=== PATIENT | female | born 1945 | race Caucasian/White ===

== ENCOUNTER 2016-12-17 10:01 | Emergency (ER) | payer MEDICARE, OTHER ==
--- NOTE | 2016-12-17 10:34 | ER Document Report ---
ED Cardiac - General Stated Complaint: CHEST PAINS Time Seen by Provider: 12/17/16 10:09 Information source: Patient Notes: Patient is a 71-year-old female with past medical history of a pacemaker placed this past March as well as high blood pressure. Patient states she had a pacemaker placed to the left chest in 2014 with subsequent infection. She has had no difficulty with this new pacemaker. Around 4 AM the patient awoke with some pain to her right lateral upper back. She denies any chest pain. She denies any nausea, vomiting, diaphoresis, calf pain, leg swelling, recent trips or travel. She denies any cough, congestion, or fever. Patient and states that the patient has a history of back pain to the similar region and wears lidocaine patches at home. believes that the patient has been taking on too many chores and responsibilities lately including mowing the lawn. TRAVEL OUTSIDE OF THE [place] IN LAST 30 DAYS: No - HPI Patient complains to provider of: Other - See above Was the onset of pain: Gradual Is the pain a: Chronic problem Chest pain location: Back Quality of pain: Other - See above Severity now: Mild Severity at worst: Moderate Pain level currently: Denies Cardiac risk factors: Hypertension Positive cardiac history: Yes Associated symptoms: Other - See above Exacerbated by: Other - Worse with movement Relieved by: Rest Similar symptoms previously: Yes Recently seen / treated by doctor: No - Related Data Allergies/Adverse Reactions: codeine [Codeine] Allergy (Verified 06/10/13 09:59) Tachycardia hydrocodone [Hydrocodone] Allergy (Verified 06/10/13 09:59) Tachycardia valdecoxib [From Bextra] Allergy (Verified 06/10/13 09:59) Hives Past Medical History - General Information source: Patient - Social History Smoking Status: Unknown if Ever Smoked Cigarette use (# per day): No Chew tobacco use (# tins/day): No Smoking Education Provided: No Frequency of alcohol use: None Drug Abuse: None Family History: Reviewed & Not Pertinent - Past Medical History Cardiac Medical History: Reports: Hx Hypertension - medicated Denies: Hx Heart Attack Pulmonary Medical History: Denies: Hx Asthma Neurological Medical History: Denies: Hx Cerebrovascular Accident, Hx Seizures GI Medical History: Denies: Hx Hepatitis, Hx Hiatal Hernia, Hx Ulcer Infectious Medical History: Denies: Hx Hepatitis Past Surgical History: Reports: Hx Hysterectomy. Denies: Hx Mastectomy, Hx Open Heart Surgery, Hx Pacemaker Review of Systems - Review of Systems Constitutional: denies: Fever EENT: denies: Eye discharge, Nose discharge Cardiovascular: denies: Chest pain, Palpitations Respiratory: denies: Hemoptysis, Short of breath, Sputum Gastrointestinal: denies: Vomiting Genitourinary: denies: Dysuria Musculoskeletal: denies: Leg swelling Skin: Other - no hives. denies: Rash Neurological/Psychological: Other - no slurred speech -: Yes All other systems reviewed and negative Physical Exam - Vital signs Vitals: Resp 15 12/17/16 10:13 Notes: Reviewed vital signs and nursing note as charted by RN. CONSTITUTIONAL: Alert and oriented and responds appropriately to questions. Well -appearing; well-nourished HEAD: Normocephalic; atraumatic CARD: Regular rate and rhythm; no murmurs, no clicks, no rubs, no gallops; symmetric distal pulses RESP: Normal chest excursion without splinting or tachypnea; breath sounds clear and equal bilaterally; pacemaker appears in place with no surrounding erythema or induration; No wheezes, no rhonchi, no rales ABD/GI: Normal bowel sounds; non-distended; soft, non-tender BACK: The back appears normal; patient has 3 lidocaine patches across her upper back. I remove the lidocaine patches and do not detect any swelling or erythema. No midline tenderness. Patient has point tenderness to the right paraspinal musculature region just left of the scapula border. Patient states that that is the pain that she is feeling EXT: Normal ROM in all joints; non-tender to palpation; no cyanosis, no effusions, no edema SKIN: No acute lesions noted NEURO: Moves all extremities equally; Motor and sensory function intact PSYCH: The patient's mood and manner are appropriate. Grooming and personal hygiene are appropriate. Course - Re-evaluation Re-evalutation: 12/17/16 10:34 Given the above history and physical examination, I do believe that this is most likely musculoskeletal in nature. Given the patient's age, symptomatology , and history I will obtain 2 sets of cardiac enzymes by 3 hours as well as provide an x-ray of the chest. I do currently believe pulmonary embolism and aortic dissection to be extremely unlikely. Patient has already taken aspirin prior to arrival. EKG shows a heart of 64, normal sinus rhythm, minimal left axis deviation, flattening T waves in leads aVL, V2 through V6. No obvious ST elevation or depression. 12/17/16 12:29 Initial troponin as recorded. Repeat troponin at 2:30 PM. 12/17/16 12:31 Chest x-ray shows normal heart, normal mediastinum, no fractures, normal lung turner, no pneumothorax. 12/17/16 15:40 Second troponin is being drawn at this time. Patient still denies any chest pain. Back pain is improved. 12/17/16 16:27 Repeat troponin as recorded. Patient's pain is improved. Still point tenderness to that same location. Still denying any chest pain or shortness of breath. Vital signs are stable. Given the above history and physical examination, with repeat troponins 2, I believe it is reasonable to discharge the patient home at this time and strict return precautions and follow-up with her primary care physician. - Vital Signs Vital signs: Temp Pulse Resp BP Pulse Ox 18 137/78 H 98 12/17/16 13:01 12/17/16 13:01 12/17/16 13:01 - Laboratory Result Diagrams: 12/17/16 11:30 12/17/16 11:30 Laboratory results interpreted by me: 12/17/16 11:30 Carbon Dioxide 31 H Discharge - Discharge Clinical Impression: Upper back pain on right side Condition: Good Disposition: HOME, SELF-CARE Additional Instructions: Come back immediately for any increased pain, change in location or quality of pain, calf pain or leg swelling, coughing or fever, chest pain, or any other acute problems. Please make sure that you follow-up with the primary care physician as we have discussed. Referrals: ALVARO CR MD [Primary Care Provider] - Follow up as needed
--- NOTE | 2016-12-17 10:41 | EKG REPORT ---
SEVERITY:- BORDERLINE ECG - SINUS RHYTHM LEFT AXIS DEVIATION BORDERLINE T ABNORMALITIES, DIFFUSE LEADS : Confirmed by: Lashell Gilbert MD 17-Dec-2016 10:40:40
--- NOTE | 2016-12-17 11:26 | RADIOLOGY REPORT (SQ) ---
EXAM DESCRIPTION: CHEST PA/LAT COMPLETED DATE/TIME: 12/17/2016 11:12 am REASON FOR STUDY: 6 COMPARISON: March 2008 EXAM PARAMETERS: NUMBER OF VIEWS: two views TECHNIQUE: Digital Frontal and Lateral radiographic views of the chest acquired. RADIATION DOSE: NA LIMITATIONS: none FINDINGS: LUNGS AND PLEURA: No opacities, masses or pneumothorax. No pleural effusion. MEDIASTINUM AND HILAR STRUCTURES: No masses or contour abnormalities. HEART AND VASCULAR STRUCTURES: Heart normal size. No evidence for failure. BONES: No acute findings. HARDWARE: Pool chamber transvenous pacemaker is identified in position. Orthopedic hardware is again identified in the lower cervical spine. OTHER: No other significant finding. IMPRESSION: NO SIGNIFICANT RADIOGRAPHIC FINDING IN THE CHEST. TECHNICAL DOCUMENTATION: JOB ID: [id number] [employer]- All Rights Reserved
[2016-12-17 11:45] LABS: ABSOLUTE BASOPHILS # (AUTO) 0.1 10^3/uL (0.0-0.2); ABSOLUTE EOSINOPHILS # (AUTO) 0.1 10^3/uL (0.0-0.6); ABSOLUTE LYMPHOCYTES (AUTO) 1.7 10^3/uL (0.5-4.7); ABSOLUTE MONOCYTES (AUTO) 0.9 10^3/uL (0.1-1.4); BASOPHILS % (AUTO) 0.7 % (0-2); EOSINOPHILS % (AUTO) 1.2 % (0-6); HEMATOCRIT 36.6 % (36.0-47.0); HEMOGLOBIN 12.6 g/dL (12.0-15.5); HGB HCT DIFFERENCE 1.2; LYMPHOCYTES % (AUTO) 17.2 % (13-45); MEAN CORPUSCULAR HEMOGLOBIN 30.7 pg (27.0-33.4); MEAN CORPUSCULAR HGB CONC 34.5 g/dL (32.0-36.0); MEAN CORPUSCULAR VOLUME 89 fl (80-97); MONOCYTES % (AUTO) 9.4 % (3-13); RED BLOOD COUNT 4.12 10^6/uL (3.72-5.28); RED CELL DISTRIBUTION WIDTH 12.9 % (11.5-14.0); SEGMENTED NEUTROPHILS % (AUTO) 71.5 % (42-78); WHITE BLOOD COUNT 9.7 10^3/uL (4.0-10.5)
[2016-12-17 12:03] LABS: ANION GAP 8 (5-19); BLOOD UREA NITROGEN 17 mg/dL (7-20); CALCIUM 9.7 mg/dL (8.4-10.2); CARBON DIOXIDE 31 mmol/L (22-30); CHLORIDE 103 mmol/L (98-107); CREATININE RESULT 0.65 mg/dL (0.52-1.25); GLUCOSE 93 mg/dL (75-110); POTASSIUM 3.9 mmol/L (3.6-5.0); SODIUM 142.4 mmol/L (137-145)
[2016-12-17] MEDS ORDERED: OXYCODONE-ACETAMINOPHEN 5-325 MG TABLET PO ONE (12:30)
[2016-12-17] MEDS ORDERED: ONDANSETRON 4 MG TAB.RAPDIS PO ONE (14:13)
[2016-12-17 16:34] VITALS: BP 102/75
== END 2016-12-17 16:51 | disposition home or self-care (01) ==
LOC: ER 10:01
DX: M54.6 Pain in thoracic spine (principal); R07.9 Chest pain, unspecified; I10 Essential (primary) hypertension
CPT/HCPCS: 93005; 99284; 36415; 85025; 80048; 84484; 71020; 93010; A9270 ×2; S0119

== ENCOUNTER 2017-08-20 12:30 | Emergency (ER) | payer MEDICARE, OTHER ==
--- NOTE | 2017-08-20 13:29 | ER Document Report ---
ED Medical Screen (RME) - General Chief Complaint: Other Stated Complaint: RIGHT LEG BLEEDING Time Seen by Provider: 08/20/17 13:21 TRAVEL OUTSIDE OF THE [place] IN LAST 30 DAYS: No - Related Data Allergies/Adverse Reactions: codeine [Codeine] Allergy (Verified 06/10/13 09:59) Tachycardia hydrocodone [Hydrocodone] Allergy (Verified 06/10/13 09:59) Tachycardia valdecoxib [From Bextra] Allergy (Verified 06/10/13 09:59) Hives Past Medical History - Social History Chew tobacco use (# tins/day): No Drug Abuse: None - Past Medical History Cardiac Medical History: Reports: Hx Hypertension - medicated Denies: Hx Heart Attack Pulmonary Medical History: Denies: Hx Asthma Neurological Medical History: Denies: Hx Cerebrovascular Accident, Hx Seizures Renal/ Medical History: Denies: Hx Peritoneal Dialysis GI Medical History: Denies: Hx Hepatitis, Hx Hiatal Hernia, Hx Ulcer Infectious Medical History: Denies: Hx Hepatitis Past Surgical History: Reports: Hx Hysterectomy. Denies: Hx Mastectomy, Hx Open Heart Surgery, Hx Pacemaker Physical Exam - Vital signs Vitals: Temp Pulse Resp BP Pulse Ox 98.5 F 74 16 143/66 H 98 08/20/17 12:35 08/20/17 12:35 08/20/17 12:35 08/20/17 12:35 08/20/17 12:35 Course - Vital Signs Vital signs: Temp Pulse Resp BP Pulse Ox 98.5 F 74 16 143/66 H 98 08/20/17 12:35 08/20/17 12:35 08/20/17 13:16 08/20/17 12:35 08/20/17 12:35 Doctor's Discharge - Discharge Referrals: ALVARO CR MD [Primary Care Provider] - Follow up as needed
--- NOTE | 2017-08-20 13:31 | ER Document Report ---
ED General - General Chief Complaint: Other Stated Complaint: RIGHT LEG BLEEDING Time Seen by Provider: 08/20/17 13:21 Mode of Arrival: Ambulatory Information source: Patient Notes: 71-year-old female presents with bleeding varicose vein that started yesterday. Patient notes it is on the right calf denies any other complaints patient is not on any blood thinners TRAVEL OUTSIDE OF THE [place] IN LAST 30 DAYS: No - HPI Onset: Just prior to arrival Onset/Duration: Sudden Quality of pain: No pain Severity: Mild Pain Level: Denies Associated symptoms: Other Exacerbated by: Denies Relieved by: Denies Similar symptoms previously: No Recently seen / treated by doctor: No - Related Data Allergies/Adverse Reactions: codeine [Codeine] Allergy (Verified 06/10/13 09:59) Tachycardia hydrocodone [Hydrocodone] Allergy (Verified 06/10/13 09:59) Tachycardia valdecoxib [From Bextra] Allergy (Verified 06/10/13 09:59) Hives Past Medical History - Social History Smoking Status: Never Smoker Cigarette use (# per day): No Chew tobacco use (# tins/day): No Smoking Education Provided: No Drug Abuse: None Family History: Reviewed & Not Pertinent Patient has suicidal ideation: No Patient has homicidal ideation: No - Past Medical History Cardiac Medical History: Reports: Hx Hypertension - medicated Denies: Hx Heart Attack Pulmonary Medical History: Denies: Hx Asthma Neurological Medical History: Denies: Hx Cerebrovascular Accident, Hx Seizures Renal/ Medical History: Denies: Hx Peritoneal Dialysis GI Medical History: Denies: Hx Hepatitis, Hx Hiatal Hernia, Hx Ulcer Infectious Medical History: Denies: Hx Hepatitis Past Surgical History: Reports: Hx Hysterectomy. Denies: Hx Mastectomy, Hx Open Heart Surgery, Hx Pacemaker Review of Systems - Review of Systems Notes: REVIEW OF SYSTEMS: CONSTITUTIONAL : Denies fever, chills, or sweats. Denies recent illness. EENT: Denies eye, ear, throat, or mouth pain or symptoms. Denies nasal or sinus congestion or discharge. Denies throat, tongue, or mouth swelling or difficulty swallowing. CARDIOVASCULAR: Denies chest pain. Denies palpitations or racing or irregular heart beat. Denies ankle edema. RESPIRATORY: Denies cough, cold, or chest congestion. Denies shortness of breath, difficulty breathing, or wheezing. GASTROINTESTINAL: Denies abdominal pain or distention. Denies nausea, vomiting , or diarrhea. Denies blood in vomitus, stools, or per rectum. Denies black, tarry stools. Denies constipation. GENITOURINARY: Denies difficulty urinating, painful urination, burning, frequency, blood in urine, or discharge. FEMALE GENITOURINARY: Denies vaginal bleeding, heavy or abnormal periods, irregular periods. Denies vaginal discharge or odor. MUSCULOSKELETAL: Denies back or neck pain or stiffness. Denies joint pain or swelling. SKIN: Denies rash, lesions or sores. HEMATOLOGIC : Admits to play mild LYMPHATIC: Denies swollen, enlarged glands. NEUROLOGICAL: Denies confusion or altered mental status. Denies passing out or loss of consciousness. Denies dizziness or lightheadedness. Denies headache. Denies weakness or paralysis or loss of use of either side. Denies problems with gait or speech. Denies sensory loss, numbness, or tingling. Denies seizures. PSYCHIATRIC: Denies anxiety or stress. Denies depression, suicidal ideation, or homicidal ideation. ALL OTHER SYSTEMS REVIEWED AND NEGATIVE. PHYSICAL EXAMINATION: GENERAL: Well-appearing, well-nourished and in no acute distress. HEAD: Atraumatic, normocephalic. EYES: Pupils equal round and reactive to light, extraocular movements intact, conjunctiva are normal. ENT: Nares patent, oropharynx clear without exudates. Moist mucous membranes. NECK: Normal range of motion, supple without lymphadenopathy LUNGS: Breath sounds clear to auscultation bilaterally and equal. No wheezes rales or rhonchi. HEART: Regular rate and rhythm without murmurs ABDOMEN: Soft, nontender, nondistended abdomen. No guarding, no rebound. No masses appreciated. Female : deferred Musculoskeletal: Normal range of motion, no pitting or edema. No cyanosis. NEUROLOGICAL: Cranial nerves grossly intact. Normal speech, normal gait. Normal sensory, motor exams PSYCH: Normal mood, normal affect. SKIN: Small opening of the right calf noted measuring 2 mm Dictation was performed using [employer] recognition software Physical Exam - Vital signs Vitals: Temp Pulse Resp BP Pulse Ox 98.5 F 74 16 143/66 H 98 08/20/17 12:35 08/20/17 12:35 08/20/17 12:35 08/20/17 12:35 08/20/17 12:35 Course - Re-evaluation Re-evalutation: 08/20/17 13:43 no bleeding is noted , will dermabon the wound, place quick clot and follow up with plastic surgeon tomorrow - Vital Signs Vital signs: Temp Pulse Resp BP Pulse Ox 98.5 F 74 16 143/66 H 98 08/20/17 12:35 08/20/17 12:35 08/20/17 13:16 08/20/17 12:35 08/20/17 12:35 Procedures - Laceration/Wound Repair Right Leg Time completed: 13:00 Wound length (cm): 0.2 Wound's Depth, Shape: Superficial Laceration pre-procedure: Sterile PPE donned Wound explored: Clean, No foreign body removed Wound Debrided: Minimal Wound Repaired With: Dermabond Post-procedure wound care: Sterile dressing applied Post-procedure NV exam normal: Yes Complications: No Discharge - Discharge Clinical Impression: Bleeding from varicose vein Condition: Stable Disposition: HOME, SELF-CARE Instructions: Varicose Veins ([facility]) Referrals: ALVARO CR MD [Primary Care Provider] - Follow up as needed KALLIE FRANCO MD [ACTIVE STAFF] - Follow up tomorrow
[2017-08-20 13:58] VITALS: BP 148/77
== END 2017-08-20 13:58 | disposition home or self-care (01) ==
LOC: ER 12:30
PROC: 0HQKXZZ Repair Right Lower Leg Skin, External Approach (ICD-10-PCS; principal; 2017-08-20)
DX: I83.91 Asymptomatic varicose veins of right lower extremity (principal); I10 Essential (primary) hypertension; Z79.899 Other long term (current) drug therapy
CPT/HCPCS: 99283; 12001; G0168

== ENCOUNTER → 2017-11-23 | Outpatient (CLI) | payer MEDICARE, OTHER ==
--- NOTE | 2017-11-24 10:15 | RADIOLOGY REPORT (SQ) ---
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 RADIONUCLIDE AND DOSE: 316 microcuries [id number] The route of agent administration: Oral ADDITIONAL DRUGS AND DOSES: None. TECHNIQUE: Iodine uptake was measured at 4 and 24 hours. Images of the neck were acquired. LIMITATIONS: None. FINDINGS: 4 HOUR UPTAKE RADIO-IODINE: 15.67%. Normal Range of 5-20% [facility] Normal Range of 5-15% [facility] Normal Range of 5-15% [facility] 24 HOUR UPTAKE RADIO-IODINE: 29.93%. Normal Range of 7-35% [facility] Normal Range of 8-35% [facility] Normal Range of 15-30% [facility] SCAN: Homogeneous uptake of the radionuclide throughout both lobes of the gland and isthmus without a reas of increased or decreased activity. Normal size. OTHER: No other significant finding. IMPRESSION: NORMAL RADIONUCLIDE SCAN OF THYROID GLAND. THE 4 HOUR IODINE UPTAKE IS SLIGHTLY GREATER THAN NORMAL AND THE 24 HOUR UPTAKE IS UPPER LIMITS OF NO RMAL. TECHNICAL DOCUMENTATION: JOB ID: [id number] [employer]- All Rights Reserved Reading location - IP/workstation name: [email or web address]
== END ==
LOC: RAD 08:58
PROVIDERS: ATTEND Internal Medicine
DX: E05.90 Thyrotoxicosis, unspecified without thyrotoxic crisis or storm (principal)
CPT/HCPCS: 78014; A9516

== ENCOUNTER 2018-09-03 17:34 | Observation (INO) | payer MEDICARE, OTHER ==
[2018-09-03] MEDS ORDERED: ACETAMINOPHEN 650 MG SUPP.RECT PR ONE (19:08)
[2018-09-03] MEDS ORDERED: ACETAMINOPHEN 325 MG TABLET PO ONE (19:15)
--- NOTE | 2018-09-03 19:42 | RADIOLOGY REPORT (SQ) ---
EXAM DESCRIPTION: CT HEAD WITHOUT COMPLETED DATE/TIME: 09/03/2018 7:30 pm REASON FOR STUDY: Head injury with headache COMPARISON: None. TECHNIQUE: Axial images acquired through the brain without intravenous contrast. Images reviewed wit h bone, brain and subdural windows. Images stored on PACS. All CT scanners at this facility use dose modulation, iterative reconstruction, and/or weight based d osing when appropriate to reduce radiation dose to as low as reasonably achievable (ALARA). [facility]: Dose Right [facility]: CareDose [facility]: Dose Right [facility]: Teradose 4D [facility]: Smart Taptu RADIATION DOSE: CT Rad equipment meets quality standard of care and radiation dose reduction techniq ues were employed. CTDIvol: 53.2 mGy. DLP: 1017 mGy-cm.. LIMITATIONS: None. FINDINGS: VENTRICLES: Normal size and contour. CEREBRUM: No masses. No hemorrhage. No midline shift. Age appropriate white matter. No evidence for a cute infarction. CEREBELLUM: No masses. No hemorrhage. No alteration of density. No evidence for acute infarction. EXTRA-AXIAL SPACES: No fluid collections. ORBITS AND GLOBE: No intra- or extraconal masses. Normal contour of globe without masses. CALVARIUM: No fracture. PARANASAL SINUSES: No fluid or mucosal thickening. SOFT TISSUES: No mass or hematoma. OTHER: No other significant finding. IMPRESSION: NO ACUTE INTRACRANIAL FINDINGS. EVIDENCE OF ACUTE STROKE: NO. TECHNICAL DOCUMENTATION: JOB ID: [id number] [place]-72 Quality ID # [id number]: Final reports with documentation of one or more dose reduction techniques (e.g., Au tomated exposure control, adjustment of the mA and/or kV according to patient size, use of iterative reconstruction technique) 2010 [employer]- All Rights Reserved Reading location - IP/workstation name: [email or web address]
--- NOTE | 2018-09-03 19:51 | RADIOLOGY REPORT (SQ) ---
EXAM DESCRIPTION: CHEST 2 VIEWS COMPLETED DATE/TIME: 09/03/2018 7:40 pm REASON FOR STUDY: Fall with chest wall pain, back pain COMPARISON: 12/17/2016 TECHNIQUE: Frontal and lateral radiographic views of the chest acquired. NUMBER OF VIEWS: Two view. LIMITATIONS: None. FINDINGS: LUNGS AND PLEURA: No pneumothorax. No consolidation or pleural effusion. MEDIASTINUM AND HILAR STRUCTURES: Stable. HEART AND VASCULAR STRUCTURES: Stable. BONES: Osteopenia. No fracture identified. HARDWARE: Cardiac pacer. OTHER: No other significant finding. IMPRESSION: NO ACUTE FINDINGS. No fracture identified. TECHNICAL DOCUMENTATION: JOB ID: [id number] [place]-72 2010 [employer]- All Rights Reserved Reading location - IP/workstation name: [email or web address]
--- NOTE | 2018-09-03 19:53 | RADIOLOGY REPORT (SQ) ---
EXAM DESCRIPTION: T SPINE AP/LAT COMPLETED DATE/TIME: 09/03/2018 7:40 pm REASON FOR STUDY: fall with midback pain COMPARISON: None. NUMBER OF VIEWS: Two views. TECHNIQUE: AP and lateral radiographic images acquired of the thoracic spine. LIMITATIONS: Motion artifact. FINDINGS: MINERALIZATION: Osteopenia. ALIGNMENT: Mild -moderate scoliosis. VERTEBRAE: No fracture identified. DISCS: Multilevel disc space narrowing with osteophytes. HARDWARE: None in the spine. MEDIASTINUM AND SOFT TISSUES: Normal heart size and aortic contour. No soft tissue abnormality. VISUALIZED LUNG CURRIE: Clear. OTHER: No other significant finding. IMPRESSION: No fracture identified. COMMENT: Motion artifact and osteopenia limit evaluation. If there is high suspicion consider cross -sectional imaging. TECHNICAL DOCUMENTATION: JOB ID: [id number] [place]-72 2010 [employer]- All Rights Reserved Reading location - IP/workstation name: [email or web address]
[2018-09-03 19:55] LABS: APPEARANCE,URINE CLEAR; BILIRUBIN,URINE NEGATIVE (NEGATIVE); COLOR,URINE STRAW; GLUCOSE, URINE NEGATIVE (NEGATIVE); KETONES,URINE 25 mg/dL (NEGATIVE); LEUKOCYTE ESTERASE,URINE SMALL (NEGATIVE); NITRITE,URINE NEGATIVE (NEGATIVE); PROTEIN,URINE NEGATIVE (NEGATIVE)
[2018-09-03 19:58] LABS: URINE SPECIFIC GRAVITY 1.013
[2018-09-03 20:10] LABS: ABSOLUTE LYMPHOCYTES (AUTO) 1.5 10^3/uL (0.5-4.7); ABSOLUTE MONOCYTES (AUTO) 0.6 10^3/uL (0.1-1.4); ABSOLUTE NEUT (AUTO) 1.5 10^3/uL (1.7-8.2); BASOPHILS % (AUTO) 0.9 % (0-2); EOSINOPHILS % (AUTO) 1.2 % (0-6); HEMATOCRIT 31.7 % (36.0-47.0); HEMOGLOBIN 10.3 g/dL (12.0-15.5); LYMPHOCYTES % (AUTO) 41.6 % (13-45); MEAN CORPUSCULAR HEMOGLOBIN 25.8 pg (27.0-33.4); MEAN CORPUSCULAR HGB CONC 32.5 g/dL (32.0-36.0); MEAN CORPUSCULAR VOLUME 80 fl (80-97); MONOCYTES % (AUTO) 16.7 % (3-13); PLATELET COUNT 247 10^3/uL (150-450); RED BLOOD COUNT 3.98 10^6/uL (3.72-5.28); RED CELL DISTRIBUTION WIDTH 16.8 % (11.5-14.0); SEGMENTED NEUTROPHILS % (AUTO) 39.6 % (42-78); TOTAL CELLS COUNTED % (AUTO) 100 %; WHITE BLOOD COUNT 3.7 10^3/uL (4.0-10.5)
[2018-09-03 20:27] LABS: ALANINE AMINOTRANSFERASE 38 U/L (9-52); ALBUMIN 3.6 g/dL (3.5-5.0); ALKALINE PHOSPHATASE 113 U/L (38-126); ANION GAP 7 (5-19); ASPARTATE AMINO TRANSFERASE 45 U/L (14-36); BILIRUBIN,DIRECT 0.5 mg/dL (0.0-0.4); BILIRUBIN,TOTAL 0.6 mg/dL (0.2-1.3); BLOOD UREA NITROGEN 13 mg/dL (7-20); CALCIUM 9.9 mg/dL (8.4-10.2); CARBON DIOXIDE 30 mmol/L (22-30); CHLORIDE 103 mmol/L (98-107); GLUCOSE 89 mg/dL (75-110); POTASSIUM 3.8 mmol/L (3.6-5.0); SODIUM 140.4 mmol/L (137-145); TOTAL PROTEIN 6.5 g/dL (6.3-8.2)
--- NOTE | 2018-09-03 21:52 | ER Document Report ---
ED General - General Chief Complaint: Fall Stated Complaint: FALL Time Seen by Provider: 09/03/18 18:47 Primary Care Provider: NILS BUNDY MD [Primary Care Provider] - Follow up as needed Mode of Arrival: Wheelchair Information source: Patient, Relative TRAVEL OUTSIDE OF THE [place] IN LAST 30 DAYS: No - HPI Notes: Patient is a 72-year-old female history of pacemaker placed 8 years ago and history of hypertension presents to the emergency department with report of 2 prior near syncopal versus syncopal events at home and she came in to see her regular practitioner earlier today who sent her for blood work. The patient was walking through the door of the laboratory when she had a sudden Sear syncopal event and fell forward on her right chest. Afterwards she reported pain to the right chest with a pleuritic component. The patient states she did not completely lose consciousness, but she was slightly disoriented thereafter. The patient reports no subjective dyspnea. She denies any nausea, vomiting. She reports no prior chest pain before the fall. The patient denies any constipation, diarrhea, dysuria, neck pain. She does report recent significant stress related to anxiety about her who has a pacemaker defibrillator and has been undergoing chemotherapy. Mild headache, not the worst of her life. Patient denies any recent medication changes. The patient takes sotalol 120 mg BID and losartan 100 mg daily and daily aspirin. - Related Data Allergies/Adverse Reactions: codeine [Codeine] Allergy (Verified 06/10/13 09:59) Tachycardia hydrocodone [Hydrocodone] Allergy (Verified 06/10/13 09:59) Tachycardia valdecoxib [From Bextra] Allergy (Verified 06/10/13 09:59) Hives Past Medical History - General Information source: Patient - Social History Smoking Status: Never Smoker Frequency of alcohol use: None Drug Abuse: None Lives with: Family Family History: Reviewed & Not Pertinent Patient has suicidal ideation: No Patient has homicidal ideation: No - Past Medical History Cardiac Medical History: Reports: Hx Hypertension - medicated Denies: Hx Heart Attack Pulmonary Medical History: Denies: Hx Asthma Neurological Medical History: Denies: Hx Cerebrovascular Accident, Hx Seizures Renal/ Medical History: Denies: Hx Peritoneal Dialysis GI Medical History: Denies: Hx Hepatitis, Hx Hiatal Hernia, Hx Ulcer Infectious Medical History: Denies: Hx Hepatitis Past Surgical History: Reports: Hx Hysterectomy. Denies: Hx Mastectomy, Hx Open Heart Surgery, Hx Pacemaker Review of Systems - Review of Systems -: Yes All other systems reviewed and negative - Patient denies any focal numbness or weakness. Physical Exam - Vital signs Vitals: Resp Pulse Ox 20 100 09/03/18 17:44 09/03/18 17:44 - Notes Notes: PHYSICAL EXAMINATION: GENERAL: Well-appearing, well-nourished and in no acute distress. HEAD: Atraumatic, normocephalic. EYES: Pupils equal round and reactive to light, extraocular movements intact, conjunctiva are normal. ENT: Nares patent, oropharynx clear without exudates. Moist mucous membranes. NECK: Normal range of motion, supple without lymphadenopathy. No carotid bruits. LUNGS: Breath sounds clear to auscultation bilaterally and equal. No wheezes rales or rhonchi. Anterior right lower chest wall pain on palpation. No crepitance or bony deformity. Patient's pacemaker site appears clear. HEART: Regular rate and rhythm with 1/6 ELAN over apex. ABDOMEN: Soft, nontender, nondistended abdomen. No guarding, no rebound. No masses appreciated. Female : deferred Musculoskeletal: Normal range of motion, no pitting or edema. No cyanosis. Negative Homans. No palpable cord. NEUROLOGICAL: Cranial nerves grossly intact. Normal speech, normal gait. Normal sensory, motor exams PSYCH: Normal mood, normal affect. SKIN: Warm, Dry, normal turgor, no rashes or lesions noted. Course - Re-evaluation Re-evalutation: 09/03/18 22:05 Patient was watched on the physical medicine teacher and showed no ectopy or other abnormality. Initial blood pressure was elevated but came down to 176/82. 09/04/18 01:56 Initial troponin was elevated at 0.57. A repeat troponin was drawn which was 0.54. Initial x-ray studies were negative for thoracic spine injury or pneumothorax or pulmonary contusion. There is no evidence for CHF. Patient still complained of her right lower chest wall pain on palpation. She has developed some nausea and was given Zofran. Repeat EKG is interpreted by me, performed at 00 16 on 09/04/2018 showed normal sinus rhythm heart rate of [address] abnormalities. No evidence for STEMI. No significant change from prior EKG reviewed. CT scan was negative for pneumothorax or congestive heart failure or pneumonia or rib fracture. Incidental note made of a 4 cm ascending aortic aneurysm. Old records requested from [facility] to assess for chronicity of the aortic aneurysm finding. Discussion was undertaken with the patient and her family and they were in agreement with admission for further evaluation and care. 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 Lindsey, call was made to [facility] and Dr. Ortiz accepted the patient in transfer, but there was a waiting list of 19 patients by his report. Blood pressure slightly elevated again. Patient given her morning dose of losartan and have written for the patient's sotalol and aspirin. Unlikely that the patient's elevated troponin with mild drop is related to the fall which occurred just prior to the lab work being initially drawn. 09/04/18 01:57 Discussion was undertaken with hospitalist Dr. Bates, who agreed to admit the pt to OBS status. CKMB was negative. 09/04/18 03:37 - Vital Signs Vital signs: Temp Pulse Resp BP Pulse Ox 98.2 F 76 20 179/76 H 96 09/03/18 17:45 09/03/18 17:45 09/03/18 21:04 09/03/18 20:27 09/03/18 21:23 - Laboratory Result Diagrams: 09/03/18 20:01 09/03/18 20:01 Laboratory results interpreted by me: 09/03/18 09/03/18 09/03/18 19:39 20:01 20:01 WBC 3.7 L Hgb 10.3 L Hct 31.7 L MCH 25.8 L RDW 16.8 H Seg Neutrophils % 39.6 L Monocytes % 16.7 H Absolute Neutrophils 1.5 L Direct Bilirubin 0.5 H AST 45 H Creatine Kinase Urine Ketones 25 H Urine Urobilinogen 2.0 H Ur Leukocyte Esterase SMALL H 09/04/18 01:41 WBC Hgb Hct MCH RDW Seg Neutrophils % Monocytes % Absolute Neutrophils Direct Bilirubin AST Creatine Kinase < 20 L Urine Ketones Urine Urobilinogen Ur Leukocyte Esterase - EKG Interpretation by Me EKG shows normal: Sinus rhythm Additional EKG results interpreted by me: 09/03/18 21:50 EKG at 19:55 as interpreted by me showed normal sinus rhythm heart rate of 71. There is no gross evidence for acute IL or ischemia noted. There is no significant changes compared to previous EKG reviewed from 09/03/2018. 09/04/18 01:58 Critical Care Note - Critical Care Note Total time excluding time spent on procedures (mins): 56 Discharge - Discharge Clinical Impression: Syncope and collapse, Elevated troponin I level Chest wall contusion Qualifiers: Encounter type: initial encounter Laterality: unspecified laterality Qualified Code(s): S20.219A - Contusion of unspecified front wall of thorax, initial encounter Condition: Stable Disposition: ADMITTED OBSERVATION Admitting Provider: Paulo (Hospitalist) Unit Admitted: IMCU Referrals: NILS BNUDY MD [Primary Care Provider] - Follow up as needed
--- NOTE | 2018-09-03 22:35 | RADIOLOGY REPORT (SQ) ---
EXAM DESCRIPTION: CT CHEST ANGIOGRAPHY WITHOUT THEN WITH IV CONTRAST COMPLETED DATE/TME: 09/03/2018 21:22 CLINICAL HISTORY: 72 years, Female, syncope with R pleuritic chest pain COMPARISON: None. TECHNIQUE: Axial CT images of the chest were obtained after the administration of IV contrast. MPR and MIP reconstructions were performed. DLP 322. Images stored on PACS. All CT scanners at this facility use dose modulation, iterative reconstruction, and/or weight based dosing when appropriate to reduce radiation dose to as low as reasonably achievable (ALARA). [facility]: Dose Right [facility]: CareDose [facility]: Dose Right [facility]: Teradose 4D [facility]: Grovac LIMITATIONS: None. FINDINGS: No pulmonary embolism is detected to the segmental branches. The thyroid gland is normal. The central airways are patent. The heart is normal in size. There are atherosclerotic calcifications of the coronary arteries. There are mild atherosclerotic calcifications of the thoracic aorta. The ascending aorta measures up to 4 cm in diameter. There is no evidence of a dissection. The descending thoracic aorta is normal in caliber. There is no pericardial effusion. No pathologically enlarged mediastinal lymph nodes. The lungs are clear. There is no pneumothorax or pleural effusion. There is no acute fracture or subluxation. Cholecystectomy clips are noted. IMPRESSION: No CT evidence of acute pulmonary embolism. Ascending aorta measuring up to 4 cm in diameter. Coronary artery disease. TECHNICAL DOCUMENTATION: Quality ID # 436: Final reports with documentation of one or more dose reduction techniques (e.g., Automated exposure control, adjustment of the mA and/or kV according to patient size, use of iterative reconstruction technique) copyright 2011 [employer]- All Rights Reserved
[2018-09-03] MEDS ORDERED: ONDANSETRON HCL INJ/PF 4 MG/2 ML SDV IV ONE (23:53)
[2018-09-04] MEDS ORDERED: ASPIRIN 81 MG TABLET, CHEWABLE PO SCH ×2 (03:10→10:00)
[2018-09-04] MEDS ORDERED: LOSARTAN POTASSIUM 50 MG TABLET PO SCH ×2 (03:10→10:00)
[2018-09-04] MEDS ORDERED: MAG HYDROX/AL HYDROX/SIMETH SUSP 30 ML UDCUP PO PRN (03:40)
--- NOTE | 2018-09-04 04:18 | PDOC H&P ---
History of Present Illness Admission Date/PCP: NILS BUNDY MD Patient complains of: Syncope History of Present Illness: STAS FLEMING is a 72 year old female with a past medical history of hypertension, cognitive decline and permanent pacemaker placed 8 years ago. Patient presents to the lab for work-up of unclear syncopal events over the past week however has another syncopal event upon arrival to the laboratory. Patient is assisted to the ground by a family member, denies loss of consciousness but complains of right sided chest wall pain. In the emergency room her physical exam is negative for trauma, skin tear, abrasion or ecchymosis. Work-up is concerning for a hypertensive urgency in the 200 systolic range, unremarkable EKG, non-ST elevation AK with a troponin of 0.5 with total CK below detected level. CTA chest is unremarkable. Patient is currently pain-free without complaints she is referred to the hospitalist for admission. Past Medical History Cardiac Medical History: Reports: Hypertension - medicated Denies: Myocardial Infarction Pulmonary Medical History: Denies: Asthma Neurological Medical History: Denies: Seizures GI Medical History: Denies: Hepatitis, Hiatal Hernia Hematology: Denies: Anemia, Sickle Cell Disease Past Surgical History Past Surgical History: Reports: Hysterectomy, Pacemaker Denies: Amputation, Mastectomy Social History Information Source: Patient Lives with: Family Smoking Status: Never Smoker Frequency of Alcohol Use: None Drugs: None - Advance Directive Resuscitation Status: Full Code Family History Family History: Hypertension Parental Family History Reviewed: Yes Children Family History Reviewed: Yes Sibling(s) Family History Reviewed.: Yes Medication/Allergy Home Medications: Ascorbate Calcium [Vitamin C] 500 mg PO DAILY PRN 06/10/13 Atorvastatin Calcium [Lipitor 40 mg Tablet] 40 mg PO QHS 06/10/13 Cholecalciferol (Vitamin D3) [Vitamin D] 400 unit PO DAILY 06/10/13 Cyanocobalamin (Vitamin B-12) [Vitamin B-12] 1,000 mcg PO DAILY 06/10/13 Loratadine [Claritin] 10 mg PO DAILY 06/10/13 Meloxicam [Mobic 15 mg Tablet] 15 mg PO DAILY 06/10/13 Metoprolol Succinate [Toprol Xl] 25 mg PO DAILY 06/10/13 Omeprazole 20 mg PO DAILY 06/10/13 Valsartan [Diovan 160 mg Tablet] 160 mg PO DAILY 06/10/13 Allergies/Adverse Reactions: codeine [Codeine] Allergy (Verified 06/10/13 09:59) Tachycardia hydrocodone [Hydrocodone] Allergy (Verified 06/10/13 09:59) Tachycardia valdecoxib [From Bextra] Allergy (Verified 06/10/13 09:59) Hives Review of Systems Constitutional: PRESENT: as per HPI, headache(s). ABSENT: chills, fatigue, fever(s), night sweats Eyes: ABSENT: visual disturbances Ears: ABSENT: hearing changes Cardiovascular: PRESENT: as per HPI, other - Syncopal episode. ABSENT: chest pain, dyspnea on exertion, edema, palpitations Respiratory: ABSENT: cough, hemoptysis Gastrointestinal: ABSENT: abdominal pain, constipation, diarrhea, hematemesis, hematochezia, nausea, vomiting Genitourinary: ABSENT: dysuria, hematuria Musculoskeletal: ABSENT: joint swelling Integumentary: ABSENT: rash, wounds Neurological: PRESENT: syncope. ABSENT: abnormal gait, abnormal speech, confusion, dizziness, focal weakness Psychiatric: ABSENT: anxiety, depression, homidical ideation, suicidal ideation Endocrine: ABSENT: cold intolerance, heat intolerance, polydipsia, polyuria Hematologic/Lymphatic: ABSENT: easy bleeding, easy bruising Physical Exam Vital Signs: Temp Pulse Resp BP Pulse Ox 98.2 F 76 20 179/76 H 96 09/03/18 17:45 09/03/18 17:45 09/03/18 21:04 09/03/18 20:27 09/03/18 21:23 Intake & Output 09/02/18 09/03/18 09/04/18 11:59 11:59 11:59 Weight 63.503 kg General appearance: PRESENT: no acute distress, cooperative, thin. ABSENT: mild distress Head exam: PRESENT: atraumatic, normocephalic Eye exam: PRESENT: conjunctiva pink, EOMI, PERRLA. ABSENT: scleral icterus Ear exam: PRESENT: normal external ear exam Mouth exam: PRESENT: moist, tongue midline Neck exam: ABSENT: carotid bruit, JVD, lymphadenopathy, thyromegaly Respiratory exam: PRESENT: clear to auscultation dale. ABSENT: rales, rhonchi, wheezes Cardiovascular exam: PRESENT: RRR. ABSENT: diastolic murmur, rubs, systolic murmur Pulses: PRESENT: normal dorsalis pedis pul Vascular exam: PRESENT: normal capillary refill GI/Abdominal exam: PRESENT: normal bowel sounds, soft. ABSENT: distended, guarding, mass, organolmegaly, rebound, tenderness Rectal exam: PRESENT: deferred Extremities exam: PRESENT: full ROM. ABSENT: calf tenderness, clubbing, pedal edema Neurological exam: PRESENT: alert, awake, oriented to person, oriented to place, oriented to time, oriented to situation, CN II-XII grossly intact. ABSENT: motor sensory deficit Psychiatric exam: PRESENT: anxious, normal mood. ABSENT: homicidal ideation, suicidal ideation Skin exam: PRESENT: dry, intact, warm. ABSENT: cyanosis, rash Results Laboratory Results: 09/03/18 20:01 09/03/18 20:01 09/03/18 09/03/18 09/03/18 19:39 20:01 20:01 WBC 3.7 L RBC 3.98 Hgb 10.3 L Hct 31.7 L MCV 80 MCH 25.8 L MCHC 32.5 RDW 16.8 H Plt Count 247 Seg Neutrophils % 39.6 L Lymphocytes % 41.6 Monocytes % 16.7 H Eosinophils % 1.2 Basophils % 0.9 Absolute Neutrophils 1.5 L Absolute Lymphocytes 1.5 Absolute Monocytes 0.6 Absolute Eosinophils 0.0 Absolute Basophils 0.0 Sodium 140.4 Potassium 3.8 Chloride 103 Carbon Dioxide 30 Anion Gap 7 BUN 13 Creatinine 0.54 Est GFR ( Amer) > 60 Est GFR (Non-Af Amer) > 60 Glucose 89 Calcium 9.9 Magnesium 1.8 Total Bilirubin 0.6 AST 45 H ALT 38 Alkaline Phosphatase 113 Total Protein 6.5 Albumin 3.6 Urine Color STRAW Urine Appearance CLEAR Urine pH 7.0 Ur Specific [place] 1.013 Urine Protein NEGATIVE Urine Glucose (UA) NEGATIVE Urine Ketones 25 H Urine Blood NEGATIVE Urine Nitrite NEGATIVE Ur Leukocyte Esterase SMALL H Urine WBC (Auto) 2 Urine RBC (Auto) 0 09/03/18 09/03/18 09/04/18 20:01 23:00 01:41 Creatine Kinase < 20 L CK-MB (CK-2) Troponin I 0.571 0.549 09/04/18 01:41 Creatine Kinase CK-MB (CK-2) 0.60 Troponin I Impressions: Chest X-Ray 09/03/18 19:10 IMPRESSION: NO ACUTE FINDINGS. No fracture identified. Head CT 09/03/18 19:10 IMPRESSION: NO ACUTE INTRACRANIAL FINDINGS. EVIDENCE OF ACUTE STROKE: NO. Thoracic Spine X-Ray 09/03/18 19:11 IMPRESSION: No fracture identified. Chest/Abdomen CTA 09/03/18 21:22 IMPRESSION: No CT evidence of acute pulmonary embolism. Ascending aorta measuring up to 4 cm in diameter. Coronary artery disease. TECHNICAL DOCUMENTATION: Quality ID # 436: Final reports with documentation of one or more dose reduction techniques (e.g., Automated exposure control, adjustment of the mA and/or kV according to patient size, use of iterative reconstruction technique) copyright 2011 [employer]- All Rights Reserved Assessment and Plan - Diagnosis (1) Syncope and collapse Is this a current diagnosis for this admission?: Yes Plan: Telemetry observation, CTA negative, orthostatic blood pressures, follow-up medication reconciliation (2) Chest wall contusion Qualifiers: Encounter type: initial encounter Laterality: unspecified laterality Qualified Code(s): S20.219A - Contusion of unspecified front wall of thorax, initial encounter Is this a current diagnosis for this admission?: Yes Plan: Symptomatic management (3) Elevated troponin I level Is this a current diagnosis for this admission?: Yes Plan: Initial troponin obtained within 30 minutes of syncopal event found elevated at 0.5 concerning for possible subacute AK. Aspirin, sotalol, cardiology consult. - Time Time Spent with patient: 25-34 minutes - Inpatient Certification Medical Necessity: Need Close Monitoring Due to Risk of Patient Decompensation
[2018-09-04] MEDS ORDERED: AMLODIPINE BESYLATE 2.5 MG TABLET PO SCH (10:00)
[2018-09-04] MEDS ORDERED: PANTOPRAZOLE SODIUM 40 MG TABLET.DR PO SCH (10:00)
[2018-09-04] MEDS ORDERED: SOTALOL HCL 80 MG TABLET PO SCH ×2 (10:00)
--- NOTE | 2018-09-04 11:24 | EKG REPORT ---
SEVERITY:- NORMAL ECG - SINUS RHYTHM : Confirmed by: Lashell Gilbert MD 04-Sep-2018 11:23:41
--- NOTE | 2018-09-04 11:24 | EKG REPORT ---
SEVERITY:- ABNORMAL ECG - SINUS RHYTHM BORDERLINE LEFT AXIS DEVIATION NONSPECIFIC T ABNORMALITIES, ANT-LAT LEADS : Confirmed by: Lashell Gilbert MD 04-Sep-2018 11:23:38
[2018-09-04 15:19] VITALS: BP 152/101
--- NOTE | 2018-09-05 22:20 | XCELERA REPORT ---
[address] [address] Transthoracic Echocardiogram Report Name: STAS FLEMING Age: 72 yrs Gender: Female : 1945 Patient Status: Inpatient Patient Location: [address] [place], [place] [address] Study Date: 09/04/2018 10:16 AM Height: 62 in Weight: 140 lb BSA: 1.6 m2 Procedure: A two-dimensional transthoracic echocardiogram with color flow and Doppler was performed. Study Quality: Good. Reason For Study: SYNCOPE History: SYNCOPE. Ordering Physician: SARA RICKS Performed By: Amelia Lubin Interpretation Summary The left ventricle is normal in size. There is normal left ventricular wall thickness. LV EF is 70% Left ventricular systolic function is normal. Doppler measurements suggest normal left ventricular diastolic function The left ventricular wall motion is normal. No ASD ,VSD,or PFO There is no thrombus. The right ventricle is mildly dilated. There is normal right ventricular wall thickness. The right ventricular systolic function is normal. The right atrium is borderline dilated. The left atrium is mildly dilated. There is no evidence of mitral valve prolapse. There is no vegetation seen on the mitral valve. There is no mitral valve stenosis. There is a moderate amount of mitral regurgitation There is no aortic valvular vegetation. There is aortic sclerosis without aortic stenosis. There is no LVOT obstruction. No aortic regurgitation is present. There is no tricuspid stenosis. There is a moderate amount of tricuspid regurgitation There is servere pulmonary hypertension by echo RVSP is 66 to 71 with RA mean of 15 to 20. There is no pulmonic valvular stenosis. There is no pulmonic valvular regurgitation. The aortic root is normal size. The inferior vena cava appeared dilated and decreased < 50% with respiration (RAP 15-20 mmHg) There is no pericardial effusion. MMode/2D Measurements & Calculations RVDd: 3.9 cm LVIDd: 4.5 cm FS: 42.7 % Ao root diam: 2.8 cm IVSd: 1.0 cm LVIDs: 2.6 cm EDV(Teich): 91.6 mlAo root area: LVPWd: 0.95 cm ESV(Teich): 23.9 ml6.3 cm2 EF(Teich): 73.9 % LA dimension: 4.4 cm LVLd ap4: 7.0 cm SV(MOD-sp4): RA Width_phl: EDV(MOD-sp4): 58.0 ml 4.5 cm 75.0 ml LVLs ap4: 5.7 cm ESV(MOD-sp4): 17.0 ml EF(MOD-sp4): 77.3 % Doppler Measurements & Calculations MV E max josephine: MV P1/2t max josephine: Ao V2 max: LV V1 max P.4 cm/sec 87.4 cm/sec 135.7 cm/sec 5.7 mmHg MV A max josephine: MV P1/2t: 70.3 msec Ao max P.4 mmHgLV V1 max: 65.2 cm/sec MVA(P1/2t): 3.1 cm2 119.0 cm/sec MV E/A: 1.3 MV dec slope: 364.1 cm/sec2 MV dec time: 0.25 sec PA V2 max: TR max josephine: MV P1/2t-pr_phl: 104.6 cm/sec 354.3 cm/sec 70.3 msec PA max P.4 mmHgTR max P.2 mmHg Left Ventricle The left ventricle is normal in size. There is normal left ventricular wall thickness. LV EF is 70%. Left ventricular systolic function is normal. Doppler measurements suggest normal left ventricular diastolic function. The left ventricular wall motion is normal. No ASD ,VSD,or PFO. There is no thrombus. Right Ventricle The right ventricle is mildly dilated. There is normal right ventricular wall thickness. The right ventricular systolic function is normal. Atria The right atrium is borderline dilated. The left atrium is mildly dilated. Mitral Valve There is no evidence of mitral valve prolapse. There is no vegetation seen on the mitral valve. There is no mitral valve stenosis. There is a moderate amount of mitral regurgitation. Aortic Valve There is no aortic valvular vegetation. There is aortic sclerosis without aortic stenosis. There is no LVOT obstruction. No aortic regurgitation is present. Tricuspid Valve There is no tricuspid stenosis. There is a moderate amount of tricuspid regurgitation. There is servere pulmonary hypertension by echo. RVSP is 66 to 71 with RA mean of 15 to 20. Pulmonic Valve There is no pulmonic valvular stenosis. There is no pulmonic valvular regurgitation. Great Vessels The aortic root is normal size. The inferior vena cava appeared dilated and decreased < 50% with respiration (RAP 15-20 mmHg). Effusions There is no pericardial effusion. : SARA RICKS > Lashell Gilbert
== END 2018-09-04 16:35 | disposition left against medical advice (07) ==
LOC: ER 17:34 → EH 09-04 04:21 → UNDOADMOB 09-04 04:21 → 4W 09-04 08:52
PROVIDERS: ADMIT Internal Medicine; ATTEND Internal Medicine
DX: R55 Syncope and collapse (principal); S20.219A Contusion of unspecified front wall of thorax, initial encounter; W19.XXXA Unspecified fall, initial encounter; Y92.538 Other ambulatory health services establishments as the place of occurrence of the external cause; R79.89 Other specified abnormal findings of blood chemistry; I10 Essential (primary) hypertension; R51 Headache; F41.9 Anxiety disorder, unspecified; Z73.3 Stress, not elsewhere classified; R11.0 Nausea; I71.2 Thoracic aortic aneurysm, without rupture; Z95.0 Presence of cardiac pacemaker; Z82.49 Family history of ischemic heart disease and other diseases of the circulatory system; Z79.899 Other long term (current) drug therapy
CPT/HCPCS: 93005 ×2; 99291; 96374; 36415 ×2; 82553; 82550; 83735; 85025; 80053; 81001; 84484 ×2; 93306; 71046; 72070; 70450; 71275; 93010 ×2; G0378 ×2; A9270 ×4; J2405; J3490

== ENCOUNTER 2019-08-07 11:27 | Inpatient (IN) | payer MEDICARE, OTHER ==
--- NOTE | 2019-08-07 12:15 | RADIOLOGY REPORT (SQ) ---
EXAM DESCRIPTION: CHEST SINGLE VIEW IMAGES COMPLETED DATE/TIME: 08/07/2019 11:56 am REASON FOR STUDY: shortness of breath COMPARISON: PA and lateral views of the chest from 09/03/2018. EXAM PARAMETERS: NUMBER OF VIEWS: One view. TECHNIQUE: An AP view of the chest was obtained. RADIATION DOSE: NA LIMITATIONS: None. FINDINGS: LUNGS AND PLEURA: No consolidation, pleural effusion or pneumothorax. MEDIASTINUM AND HILAR STRUCTURES: No mediastinal or hilar contour abnormality. HEART AND VASCULAR STRUCTURES: The cardiac silhouette is borderline enlarged. BONES: No acute findings. HARDWARE: ACDF hardware and intact right subclavian vein approach transvenous pacemaker. OTHER: No other finding. IMPRESSION: No acute cardiopulmonary process. TECHNICAL DOCUMENTATION: JOB ID: [id number] 2010 [employer]- All Rights Reserved Reading location - IP/workstation name: [email or web address]
[2019-08-07 12:27] LABS: HEMATOCRIT 18.4 % (36.0-47.0); MEAN CORPUSCULAR HGB CONC 29.8 g/dL (32.0-36.0); PLATELET COUNT 439 10^3/uL (150-450); RED BLOOD COUNT 3.04 10^6/uL (3.72-5.28); RED CELL DISTRIBUTION WIDTH 19.6 % (11.5-14.0); WHITE BLOOD COUNT 4.8 10^3/uL (4.0-10.5)
[2019-08-07 12:31] LABS: HEMOGLOBIN 5.5 g/dL (12.0-15.5)
[2019-08-07 12:32] LABS: MEAN CORPUSCULAR VOLUME 61 fl (80-97)
[2019-08-07 12:48] LABS: ALBUMIN 3.8 g/dL (3.5-5.0); ALKALINE PHOSPHATASE 78 U/L (38-126); ANION GAP 6 (5-19); ASPARTATE AMINO TRANSFERASE 37 U/L (14-36); BILIRUBIN,DIRECT 0.2 mg/dL (0.0-0.4); BILIRUBIN,TOTAL 0.5 mg/dL (0.2-1.3); BLOOD UREA NITROGEN 22 mg/dL (7-20); CARBON DIOXIDE 24 mmol/L (22-30); CHLORIDE 105 mmol/L (98-107); GLUCOSE 118 mg/dL (75-110); POTASSIUM 4.6 mmol/L (3.6-5.0); TOTAL PROTEIN 6.8 g/dL (6.3-8.2)
[2019-08-07 12:54] LABS: ABSOLUTE LYMPHOCYTES# (MANUAL) 0.3 10^3/uL (0.5-4.7); ABSOLUTE MONOCYTES # (MANUAL) 0.3 10^3/uL (0.1-1.4); BAND NEUTROPHILS % (MANUAL) 1 % (3-5); BASOPHILS % (MANUAL) 0 % (0-2); EOSINOPHILS % (MANUAL) 2 % (0-6); LYMPHOCYTES % (MANUAL) 6 % (13-45); MONOCYTES % (MANUAL) 6 % (3-13); SEGMENTED NEUTROPHILS % (MAN) 85 % (42-78); TOTAL CELLS COUNTED 100
[2019-08-07] MEDS ORDERED: NORMAL SALINE 250 ML IV PRN (12:56)
[2019-08-07 12:57] LABS: HYPOCHROMASIA 2+; OVALOCYTES 1+; POIKILOCYTOSIS 1+; POLYCHROMASIA SLIGHT; TARGET CELLS SLIGHT
[2019-08-07 12:58] LABS: ANISOCYTOSIS 2+; PLATELET COMMENT ADEQUATE
--- NOTE | 2019-08-07 13:58 | ER Document Report ---
ED General - General Chief Complaint: Shortness Of Breath Stated Complaint: SHORTNESS OF BREATH Time Seen by Provider: 08/07/19 12:36 Primary Care Provider: NILS BUNDY MD [Primary Care Provider] - Follow up as needed Mode of Arrival: Ambulatory Information source: Patient TRAVEL OUTSIDE OF THE [place] IN LAST 30 DAYS: No - HPI Notes: Patient presents with shortness of breath. She states this is been going on for approximately 1 day. She states it is worse with exertion and better with rest. There is no radiation the symptom. It has been constant. She states she does feel better now that she has been at the hospital. It has been moderate to severe in intensity. She denies any significant cough or congestion. No fevers. No known COVID virus exposures. She states she is also felt weak. She denies any vomiting or diarrhea. She denies any blood in her stool. - Related Data Allergies/Adverse Reactions: codeine [Codeine] Allergy (Verified 06/10/13 09:59) Tachycardia hydrocodone [Hydrocodone] Allergy (Verified 06/10/13 09:59) Tachycardia valdecoxib [From Bextra] Allergy (Verified 06/10/13 09:59) Hives Past Medical History - General Information source: Patient - Social History Smoking Status: Never Smoker Chew tobacco use (# tins/day): No Frequency of alcohol use: None Drug Abuse: None Family History: Hypertension Patient has homicidal ideation: No - Past Medical History Cardiac Medical History: Reports: Hx Hypertension - medicated Denies: Hx Heart Attack Pulmonary Medical History: Denies: Hx Asthma Neurological Medical History: Denies: Hx Cerebrovascular Accident, Hx Seizures Renal/ Medical History: Denies: Hx Peritoneal Dialysis GI Medical History: Denies: Hx Hepatitis, Hx Hiatal Hernia, Hx Ulcer Musculoskeletal Medical History: Reports Hx Arthritis Infectious Medical History: Denies: Hx Hepatitis Past Surgical History: Reports: Hx Hysterectomy, Hx Pacemaker. Denies: Hx Mastectomy, Hx Open Heart Surgery Review of Systems - Review of Systems Constitutional: Weakness. denies: Chills, Fever Cardiovascular: denies: Chest pain, Palpitations Respiratory: Short of breath. denies: Cough -: Yes All other systems reviewed and negative Physical Exam - Vital signs Vitals: Temp 98.4 F 08/07/19 11:28 Interpretation: Normal - General General appearance: Appears well, Alert - HEENT Head: Normocephalic, Atraumatic Eyes: Normal Pupils: PERRL - Respiratory Respiratory status: No respiratory distress Chest status: Nontender Breath sounds: Normal Chest palpation: Normal - Cardiovascular Rhythm: Regular Heart sounds: Normal auscultation Murmur: No - Abdominal Inspection: Normal Distension: No distension Bowel sounds: Normal Tenderness: Nontender Organomegaly: No organomegaly - Rectal Tenderness: No Stool: Heme positive Hemorrhoids: None - Back Back: Normal, Nontender - Extremities General upper extremity: Normal inspection, Nontender, Normal color, Normal ROM, Normal temperature General lower extremity: Normal inspection, Nontender, Normal color, Normal ROM, Normal temperature, Normal weight bearing. No: Wero's sign - Neurological Neuro grossly intact: Yes Cognition: Normal Orientation: AAOx4 [place] Coma Scale Eye Opening: Spontaneous [place] Coma Scale Verbal: Oriented Apple Coma Scale Motor: Obeys Commands [place] Coma Scale Total: 15 Speech: Normal Motor strength normal: LUE, RUE, LLE, RLE Sensory: Normal - Psychological Associated symptoms: Normal affect, Normal mood - Skin Skin Temperature: Warm Skin Moisture: Dry Skin Color: Pale Course - Re-evaluation Re-evalutation: 08/07/19 13:55 Patient presents with shortness of breath. She has had no URI symptoms. She denies any bloody stool or dark tarry stools. However on exam she was heme positive from below. 2 units of blood have been ordered and patient will be admitted for further inpatient evaluation. - Vital Signs Vital signs: Temp Pulse Resp BP Pulse Ox 98.8 F 66 16 110/59 L 100 08/07/19 11:31 08/07/19 11:31 08/07/19 13:01 08/07/19 13:01 08/07/19 12:01 - Laboratory Result Diagrams: 08/07/19 12:15 08/07/19 12:15 Laboratory results interpreted by me: 08/07/19 08/07/19 08/07/19 12:15 12:15 12:15 RBC 3.04 L Hgb 5.5 L Hct 18.4 L MCV 61 L MCH 18.0 L MCHC 29.8 L RDW 19.6 H Seg Neuts % (Manual) 85 H Band Neutrophils % 1 L Lymphocytes % (Manual) 6 L Abs Lymphs (Manual) 0.3 L Sodium 135.1 L BUN 22 H Glucose 118 H AST 37 H Crossmatch See Detail - EKG Interpretation by Me Rate: Normal - 65 Rhythm: Other - paced [place]/QRS: Left axis deviation Critical Care Note - Critical Care Note Total time excluding time spent on procedures (mins): 35 Comments: 35 minutes of critical care time were spent managing this patient severe anemia. This was spent during multiple reassessments. He has been talking to multiple consultants. Spent reviewing laboratory values. Is also spent talking with family. Discharge - Discharge Clinical Impression: Anemia Qualifiers: Anemia type: iron deficiency Iron deficiency anemia type: chronic blood loss Qualified Code(s): D50.0 - Iron deficiency anemia secondary to blood loss (chronic) Condition: Serious Disposition: ADMITTED INPATIENT Admitting Provider: Montrell (Hospitalist) Unit Admitted: Medical Floor Referrals: NILS BUNDY MD [Primary Care Provider] - Follow up as needed
[2019-08-07] MEDS ORDERED: PROMETHAZINE HCL INJ 25 MG/1 ML VIAL IV PRN (15:42)
[2019-08-07] MEDS ORDERED: ACETAMINOPHEN 325 MG TABLET PO PRN (15:42)
[2019-08-07] MEDS ORDERED: TEMAZEPAM 7.5 MG CAPSULE PO PRN (15:42)
[2019-08-07] MEDS ORDERED: MAGNESIUM HYDROXIDE SUSP 30 ML UDCUP PO PRN (15:42)
--- NOTE | 2019-08-07 16:12 | PDOC H&P ---
History of Present Illness Admission Date/PCP: 08/07/19 14:40 NILS BUNDY MD Patient complains of: Shortness of breath History of Present Illness: STAS FLEMING is a 73 year old female Past Medical History Cardiac Medical History: Reports: Atrial Fibrillation - The patient did not report this but she has a pacemaker and is on sotalol, Hypertension - medicated Denies: Myocardial Infarction Pulmonary Medical History: Denies: Asthma Neurological Medical History: Denies: Seizures Endocrine Medical History: Denies: Diabetes Mellitus Type 2, Hypothyroidism Renal/ Medical History: Denies: Chronic Kidney Disease Malignancy Medical History: Reports: None GI Medical History: Denies: Hepatitis, Hiatal Hernia Musculoskeltal Medical History: Reports: Arthritis Psychiatric Medical History: Denies: Alcohol Dependency, Substance Abuse, Tobacco Dependency Hematology: Denies: Anemia, Sickle Cell Disease Past Surgical History Past Surgical History: Reports: Hysterectomy, Pacemaker Denies: Amputation, Mastectomy Social History Information Source: Patient, [facility] Records Lives with: Spouse/Significant other Smoking Status: Never Smoker Electronic Cigarette use?: No Frequency of Alcohol Use: None Hx Recreational Drug Use: No Drugs: None Hx Prescription Drug Abuse: No - Advance Directive Resuscitation Status: Full Code Surrogate healthcare decision maker:: The patient has been repeatedly dedicated decision-maker Family History Family History: CAD, Hypertension Parental Family History Reviewed: Yes Children Family History Reviewed: Yes Sibling(s) Family History Reviewed.: Yes Medication/Allergy Home Medications: Aspirin [Adult Low Dose Aspirin EC] 81 mg PO DAILY 09/04/18 Cyanocobalamin (Vitamin B-12) [Vitamin B-12 1000 mcg Tablet] 1,000 mcg PO DAILY 09/04/18 Cyclobenzaprine HCl [Flexeril 5 mg Tablet] 5 mg PO HSP PRN 09/04/18 Losartan Potassium [Cozaar 100 mg Tablet] 100 mg PO DAILY 09/04/18 Meloxicam [Mobic] 15 mg PO DAILY 09/04/18 Omeprazole 20 mg PO Q6AM 09/04/18 Prednisone [Deltasone 5 mg Tablet] 2.5 mg PO DAILY 09/04/18 Sotalol HCl [Sotalol AF] 120 mg PO Q12 09/04/18 Amlodipine Besylate [Norvasc 2.5 mg Tablet] 2.5 mg PO DAILY 08/07/19 Atorvastatin Calcium [Lipitor 40 mg Tablet] 40 mg PO QHS 08/07/19 Lidocaine [Lidoderm 5% (700 mg) Transdermal Patch] 1 patch TOP DAILYP PRN 08/07/19 Loratadine [Claritin 10 mg Tablet] 10 mg PO DAILY 08/07/19 Rivaroxaban [Xarelto] 20 mg PO QPM 08/07/19 Allergies/Adverse Reactions: codeine [Codeine] Allergy (Verified 06/10/13 09:59) Tachycardia hydrocodone [Hydrocodone] Allergy (Verified 06/10/13 09:59) Tachycardia valdecoxib [From Bextra] Allergy (Verified 06/10/13 09:59) Hives Review of Systems All systems: reviewed and no additional remarkable complaints except as stated Constitutional: PRESENT: fatigue, weakness Cardiovascular: PRESENT: dyspnea on exertion Gastrointestinal: PRESENT: nausea Physical Exam Vital Signs: Temp Pulse Resp BP Pulse Ox 98.4 F 67 20 130/73 H 100 08/07/19 15:36 08/07/19 15:36 08/07/19 15:36 08/07/19 15:36 08/07/19 15:36 Intake & Output 08/06/19 08/07/19 08/08/19 06:59 06:59 06:59 Intake Total 300 Balance 300 Weight 70.2 kg General appearance: PRESENT: cooperative, mild distress, well-developed Head exam: PRESENT: atraumatic, normocephalic Eye exam: PRESENT: conjunctiva pale, EOMI. ABSENT: nystagmus, scleral icterus Ear exam: PRESENT: normal external ear exam. ABSENT: bleeding, drainage Mouth exam: PRESENT: moist, tongue midline Neck exam: ABSENT: carotid bruit, JVD, lymphadenopathy Respiratory exam: PRESENT: clear to auscultation dale, symmetrical, unlabored. ABSENT: accessory muscle use, prolonged expiratory phas, rales, tachypnea, wheezes Cardiovascular exam: PRESENT: RRR, +S1, +S2. ABSENT: diastolic murmur, irreg ular rhythm, systolic murmur GI/Abdominal exam: PRESENT: normal bowel sounds, soft. ABSENT: distended, guarding, rebound, tenderness Rectal exam: PRESENT: heme (+) stool - Per emergency department physician exam Gentrourinary exam: ABSENT: indwelling catheter Extremities exam: ABSENT: pedal edema Musculoskeletal exam: PRESENT: ambulatory, normal inspection. ABSENT: deformity Neurological exam: PRESENT: alert, awake, oriented to person, oriented to place, oriented to situation, CN II-XII grossly intact. ABSENT: altered Psychiatric exam: PRESENT: anxious, appropriate affect. ABSENT: agitated Focused psych exam: ABSENT: delusional, paranoid, restlessness Skin exam: PRESENT: dry, pallor, warm. ABSENT: rash Results Laboratory Results: 08/07/19 12:15 08/07/19 12:15 08/07/19 08/07/19 08/07/19 12:15 12:15 12:15 WBC 4.8 RBC 3.04 L Hgb 5.5 L Hct 18.4 L MCV 61 L MCH 18.0 L MCHC 29.8 L RDW 19.6 H Plt Count 439 Seg Neutrophils % Not Reportable Sodium 135.1 L Potassium 4.6 Chloride 105 Carbon Dioxide 24 Anion Gap 6 BUN 22 H Creatinine 0.84 Est GFR ( Amer) > 60 Glucose 118 H Calcium 9.0 Total Bilirubin 0.5 AST 37 H Alkaline Phosphatase 78 Total Protein 6.8 Albumin 3.8 Blood Type A POSITIVE Antibody Screen NEGATIVE Impressions: Chest X-Ray 08/07/19 11:41 IMPRESSION: No acute cardiopulmonary process. Assessment and Plan - Diagnosis (1) Acute blood loss anemia Is this a current diagnosis for this admission?: Yes Plan: 08/07/2019 The patient's hemoglobin was only 5.5 on admission. Her MCV is 63. This is not an acute finding. It is likely that her symptoms have been developing slowly over 4 weeks peaks over the last several days. She denies hematemesis or hematochezia. She received 2 units of packed red blood cells we will recheck a CBC. I have also ordered iron/anemia studies due to her low MCV. We will need to hold the aspirin and anticoagulation at this time. In addition we will need to assess her deficiencies and supplement. We will be checking iron, folic acid B12. (2) Gastrointestinal bleed Qualifiers: GI bleed type/associated pathology: unspecified gastrointestinal hemorrhage type Qualified Code(s): K92.2 - Gastrointestinal hemorrhage, unspecified Is this a current diagnosis for this admission?: Yes Plan: 08/07/2019 The patient is on daily NSAIDs. I do not know if she realizes meloxicam is an NSAID. She denied using additional ibuprofen or Naprosyn. I have started on Protonix 40 mg twice daily. Surgery has been consulted for endoscopy. It is likely a gastritis from her nonsteroidal anti-inflammatory use. I have placed her on a clear liquid diet. She will likely undergo bowel prep and then n.p.o. status for endoscopy. (3) Longstanding persistent atrial fibrillation Is this a current diagnosis for this admission?: Yes Plan: 08/07/2019 Continue sotalol however they need to hold the anticoagulation. (4) Hypertension Qualifiers: Hypertension type: essential hypertension Qualified Code(s): I10 - Essent ial (primary) hypertension Is this a current diagnosis for this admission?: Yes Plan: 08/07/2019 Continue antihypertensive medications with parameters. Monitor with every 4 hour vital signs (5) Hypercholesterolemia Is this a current diagnosis for this admission?: Yes Plan: 08/07/2019 Continue statin therapy (6) Chronic anticoagulation Is this a current diagnosis for this admission?: Yes Plan: 08/07/2019 Holding anticoagulation and aspirin - Time Time Spent with patient: 35 or more minutes Medications reviewed and adjusted accordingly: Yes Anticipated discharge: Home - Inpatient Certification Based on my medical assessment, after consideration of the patient's comorbidities, presenting symptoms, or acuity I expect that the services needed warrant INPATIENT care.: Yes I certify that my determination is in accordance with my understanding of Medicare's requirements for reasonable and necessary INPATIENT services [42 CFR 412.3e].: Yes Medical Necessity: Need For IV Fluids, Need For Continuous Telemetry Monitoring, Need for Surgery - Endoscopy, Other - Transfusions Post Hospital Care: D/C [place] Documentation
[2019-08-07 17:02] LABS: APPEARANCE,URINE CLEAR; BILIRUBIN,URINE NEGATIVE (NEGATIVE); COLOR,URINE YELLOW; GLUCOSE, URINE NEGATIVE (NEGATIVE); KETONES,URINE NEGATIVE (NEGATIVE); LEUKOCYTE ESTERASE,URINE SMALL (NEGATIVE); NITRITE,URINE NEGATIVE (NEGATIVE); PROTEIN,URINE NEGATIVE (NEGATIVE); URINE SPECIFIC GRAVITY 1.009; UROBILINOGEN,URINE NEGATIVE mg/dL (<2.0)
[2019-08-07] MEDS: LOSARTAN POTASSIUM 50 MG TABLET PO SCH (18:47)
[2019-08-07] MEDS: NORMAL SALINE 1000 ML 1,000 ML IV PRN (20:39)
[2019-08-07 20:51] LABS: ABSOLUTE BASOPHILS # (AUTO) 0.1 10^3/uL (0.0-0.2); ABSOLUTE EOSINOPHILS # (AUTO) 0.1 10^3/uL (0.0-0.6); ABSOLUTE LYMPHOCYTES (AUTO) 1.5 10^3/uL (0.5-4.7); ABSOLUTE MONOCYTES (AUTO) 0.8 10^3/uL (0.1-1.4); ABSOLUTE RETICS # 0.064 10^6/uL (0.028-0.122); BASOPHILS % (AUTO) 1.7 % (0-2); HEMATOCRIT 28.6 % (36.0-47.0); LYMPHOCYTES % (AUTO) 28.3 % (13-45); MEAN CORPUSCULAR HEMOGLOBIN 23.4 pg (27.0-33.4); MEAN CORPUSCULAR HGB CONC 33.5 g/dL (32.0-36.0); MONOCYTES % (AUTO) 14.5 % (3-13); PLATELET COUNT 376 10^3/uL (150-450); RED BLOOD COUNT 4.08 10^6/uL (3.72-5.28); RED CELL DISTRIBUTION WIDTH 28.8 % (11.5-14.0); RETICULOCYTE COUNT (AUTO) 1.53 % (0.66-2.85); SEGMENTED NEUTROPHILS % (AUTO) 54.5 % (42-78); TOTAL CELLS COUNTED % (AUTO) 100 %; WHITE BLOOD COUNT 5.4 10^3/uL (4.0-10.5)
[2019-08-07 20:59] LABS: HEMOGLOBIN 9.6 g/dL (12.0-15.5); MEAN CORPUSCULAR VOLUME 70 fl (80-97)
[2019-08-07 21:04] LABS: IRON(TIBC) 372.3 ug/dL (37-170)
[2019-08-07 21:11] LABS: ANISOCYTOSIS 4+; HYPOCHROMASIA 1+; OVALOCYTES 1+; PLATELET COMMENT ADEQUATE; POLYCHROMASIA SLIGHT
[2019-08-07] MEDS: ATORVASTATIN CALCIUM 40 MG TABLET PO SCH (21:25)
[2019-08-07] MEDS: PANTOPRAZOLE SODIUM 40 MG VIAL IV SCH (21:26)
[2019-08-07] MEDS: SOTALOL HCL 80 MG TABLET PO SCH (21:26)
[2019-08-07 21:41] LABS: FERRITIN 6.75 ng/mL (11.1-264.0)
[2019-08-08 06:17] LABS: ABSOLUTE BASOPHILS # (AUTO) 0.1 10^3/uL (0.0-0.2); ABSOLUTE EOSINOPHILS # (AUTO) 0.1 10^3/uL (0.0-0.6); ABSOLUTE NEUT (AUTO) 3.6 10^3/uL (1.7-8.2); ABSOLUTE RETICS # 0.068 10^6/uL (0.028-0.122); BASOPHILS % (AUTO) 1.3 % (0-2); EOSINOPHILS % (AUTO) 1.8 % (0-6); HEMOGLOBIN 9.6 g/dL (12.0-15.5); MEAN CORPUSCULAR HEMOGLOBIN 22.1 pg (27.0-33.4); MEAN CORPUSCULAR VOLUME 69 fl (80-97); MONOCYTES % (AUTO) 14.3 % (3-13); PLATELET COUNT 352 10^3/uL (150-450); RED BLOOD COUNT 4.34 10^6/uL (3.72-5.28); RED CELL DISTRIBUTION WIDTH 28.9 % (11.5-14.0); RETICULOCYTE COUNT (AUTO) 1.56 % (0.66-2.85); SEGMENTED NEUTROPHILS % (AUTO) 52.6 % (42-78); TOTAL CELLS COUNTED % (AUTO) 100 %; WHITE BLOOD COUNT 6.8 10^3/uL (4.0-10.5)
[2019-08-08 06:28] LABS: ANION GAP 5 (5-19); BLOOD UREA NITROGEN 14 mg/dL (7-20); CALCIUM 8.9 mg/dL (8.4-10.2); CARBON DIOXIDE 24 mmol/L (22-30); CHLORIDE 106 mmol/L (98-107); GLUCOSE 85 mg/dL (75-110); IRON(TIBC) 391.5 ug/dL (37-170); POTASSIUM 4.1 mmol/L (3.6-5.0)
--- NOTE | 2019-08-08 06:36 | PDOC CONSULTATION ---
Consultation Consult Date: 08/07/19 Provider Consulted: SURGICAL SURGICALIST Consult reason:: anemia History of Present Illness Admission Date/PCP: 08/07/19 14:40 NILS BUNDY MD Patient complains of: Weakness and anemia History of Present Illness: STAS FLEMING is a 73 year old female seen in consultation at the request of the hospitalist service. The patient is a very poor historian, and finds it very difficult to relay even simple details related to her medical history. Her information is supplemented by information gleaned from the medical record. Patient reports feeling weak and tired at home. The patient denies melena, hematochezia, or hematemesis. She does take Xarelto at home, as well as daily meloxicam. The patient "thinks" she has atrial fibrillation, but is not sure. She denies abdominal pain, fevers, chills, headache, blurry vision, sore throat, cough, shortness of breath. She does report weakness, fatigue, malaise, orthostasis, dizziness. Past Medical History Cardiac Medical History: Reports: Atrial Fibrillation - The patient did not report this but she has a pacemaker and is on sotalol, Hypertension - medicated Denies: Myocardial Infarction Pulmonary Medical History: Denies: Asthma Neurological Medical History: Denies: Seizures Endocrine Medical History: Denies: Diabetes Mellitus Type 2, Hypothyroidism Renal/ Medical History: Denies: Chronic Kidney Disease Malignancy Medical History: Reports: None GI Medical History: Denies: Hepatitis, Hiatal Hernia Musculoskeltal Medical History: Reports: Arthritis Psychiatric Medical History: Denies: Alcohol Dependency, Substance Abuse, Tobacco Dependency Hematology: Denies: Anemia, Sickle Cell Disease Past Surgical History Past Surgical History: Reports: Hysterectomy, Pacemaker, Other - Endoscopy was performed by Dr. Adler, as recently as 1 to 2 years ago. Denies: Amputation, Mastectomy Social History Lives with: Spouse/Significant other Smoking Status: Never Smoker Electronic Cigarette use?: No Frequency of Alcohol Use: None Hx Recreational Drug Use: No Drugs: None Hx Prescription Drug Abuse: No - Advance Directive Resuscitation Status: Full Code Family History Family History: CAD, Hypertension Parental Family History Reviewed: Yes Children Family History Reviewed: Yes Sibling(s) Family History Reviewed.: Yes Medication/Allergy Home Medications: Aspirin [Adult Low Dose Aspirin EC] 81 mg PO DAILY 09/04/18 Cyanocobalamin (Vitamin B-12) [Vitamin B-12 1000 mcg Tablet] 1,000 mcg PO DAILY 09/04/18 Cyclobenzaprine HCl [Flexeril 5 mg Tablet] 5 mg PO HSP PRN 09/04/18 Losartan Potassium [Cozaar 100 mg Tablet] 100 mg PO DAILY 09/04/18 Meloxicam [Mobic] 15 mg PO DAILY 09/04/18 Omeprazole 20 mg PO Q6AM 09/04/18 Prednisone [Deltasone 5 mg Tablet] 2.5 mg PO DAILY 09/04/18 Sotalol HCl [Sotalol AF] 120 mg PO Q12 09/04/18 Amlodipine Besylate [Norvasc 2.5 mg Tablet] 2.5 mg PO DAILY 08/07/19 Atorvastatin Calcium [Lipitor 40 mg Tablet] 40 mg PO QHS 08/07/19 Lidocaine [Lidoderm 5% (700 mg) Transdermal Patch] 1 patch TOP DAILYP PRN 08/07/19 Loratadine [Claritin 10 mg Tablet] 10 mg PO DAILY 08/07/19 Rivaroxaban [Xarelto] 20 mg PO QPM 08/07/19 Allergies/Adverse Reactions: codeine [Codeine] Allergy (Verified 08/07/19 21:34) Tachycardia hydrocodone [Hydrocodone] Allergy (Verified 08/07/19 21:34) Tachycardia valdecoxib [From Bextra] Allergy (Verified 08/07/19 21:34) Hives Review of Systems Constitutional: PRESENT: fatigue, weakness. ABSENT: anorexia, chills, fever(s), headache(s) Eyes: ABSENT: visual disturbances Ears: ABSENT: hearing changes Nose, Mouth, and Throat: ABSENT: sore throat Cardiovascular: PRESENT: dyspnea on exertion Respiratory: PRESENT: cough, dyspnea Gastrointestinal: ABSENT: abdominal pain, hematemesis, hematochezia, melena, nausea, vomiting Genitourinary: ABSENT: dysuria Musculoskeletal: ABSENT: back pain Integumentary: ABSENT: pruritus, rash Neurological: ABSENT: confusion, convulsions, dizziness Psychiatric: ABSENT: anxiety, depression Endocrine: PRESENT: cold intolerance. ABSENT: heat intolerance Hematologic/Lymphatic: PRESENT: easy bleeding, easy bruising Physical Exam Vital Signs: Temp Pulse Resp BP Pulse Ox 98.6 F 67 19 166/83 H 99 08/07/19 18:11 08/07/19 20:49 08/07/19 18:11 08/07/19 18:11 08/07/19 18:11 Intake & Output 08/06/19 08/07/19 08/08/19 06:59 06:59 06:59 Intake Total 1060 Balance 1060 Weight 70.2 kg General appearance: PRESENT: no acute distress, cooperative, other - Elderly Head exam: PRESENT: atraumatic, normocephalic Eye exam: PRESENT: EOMI, PERRLA. ABSENT: scleral icterus Mouth exam: PRESENT: moist, neck supple Neck exam: ABSENT: meningismus, tenderness, thyromegaly, tracheal deviation Respiratory exam: PRESENT: unlabored. ABSENT: chest wall tenderness, tachypnea, wheezes Cardiovascular exam: ABSENT: tachycardia Vascular exam: PRESENT: pallor GI/Abdominal exam: PRESENT: soft. ABSENT: distended, firm, guarding, tenderness Rectal exam: PRESENT: deferred Extremities exam: ABSENT: clubbing Musculoskeletal exam: ABSENT: deformity Neurological exam: PRESENT: alert, awake, oriented to person Psychiatric exam: PRESENT: other - Forgetful. ABSENT: agitated, anxious, depressed Focused psych exam: ABSENT: delusional Skin exam: ABSENT: cyanosis, erythema, jaundice Results Laboratory Results: 08/07/19 12:15 08/07/19 08/07/19 08/07/19 12:15 12:15 12:15 WBC 4.8 RBC 3.04 L Hgb 5.5 L Hct 18.4 L MCV 61 L MCH 18.0 L MCHC 29.8 L RDW 19.6 H Plt Count 439 Seg Neutrophils % Not Reportable Retic Count (auto) Sodium 135.1 L Potassium 4.6 Chloride 105 Carbon Dioxide 24 Anion Gap 6 BUN 22 H Creatinine 0.84 Est GFR ( Amer) > 60 Glucose 118 H Calcium 9.0 Iron Total Bilirubin 0.5 AST 37 H Alkaline Phosphatase 78 Total Protein 6.8 Albumin 3.8 Urine Color Urine Appearance Urine pH Ur Specific Pless[place] Urine Protein Urine Glucose (UA) Urine Ketones Urine Blood Urine Nitrite Ur Leukocyte Esterase Urine WBC (Auto) Blood Type A POSITIVE Antibody Screen NEGATIVE 08/07/19 08/07/19 08/07/19 16:15 20:30 20:30 WBC RBC Hgb Hct MCV MCH MCHC RDW Plt Count Seg Neutrophils % Retic Count (auto) 1.53 Sodium Potassium Chloride Carbon Dioxide Anion Gap BUN Creatinine Est GFR ( Amer) Glucose Calcium Iron 372.3 H Total Bilirubin AST Alkaline Phosphatase Total Protein Albumin Urine Color YELLOW Urine Appearance CLEAR Urine pH 6.0 Ur Specific [place] 1.009 Urine Protein NEGATIVE Urine Glucose (UA) NEGATIVE Urine Ketones NEGATIVE Urine Blood NEGATIVE Urine Nitrite NEGATIVE Ur Leukocyte Esterase SMALL H Urine WBC (Auto) 2 Blood Type Antibody Screen Impressions: Chest X-Ray 08/07/19 11:41 IMPRESSION: No acute cardiopulmonary process. Assessment & Plan - Diagnosis (1) Anemia Qualifiers: Anemia type: iron deficiency Iron deficiency anemia type: chronic blood loss Qualified Code(s): D50.0 - Iron deficiency anemia secondary to blood loss (chronic) Is this a current diagnosis for this admission?: Yes - Plan Summary Plan Summary: This is a 73-year-old female with severe anemia. It is likely related to her Xarelto and meloxicam. The patient reports that Dr. Adler performs her endoscopies as an outpatient. She "thinks" her last endoscopy was 1 to 2 years ago, but cannot remember. I will request these records. Hold Xarelto, aspirin, and meloxicam. It may benefit her to stop these medications indefinitely. Her last dose of Xarelto was yesterday. We will need to wait at least 48 hours from last dose before considering endoscopy. After her endoscopy records have been obtained, I will plan for upper with possible lower endoscopy. The patient is in agreement with the treatment plan. She is currently receiving a blood transfusion. Surgery will continue to follow with you.
[2019-08-08 06:38] LABS: ANISOCYTOSIS 4+; HYPOCHROMASIA 1+; OVALOCYTES SLIGHT; PLATELET COMMENT ADEQUATE; POIKILOCYTOSIS 1+; POLYCHROMASIA SLIGHT
[2019-08-08] MEDS: NORMAL SALINE 1000 ML 1,000 ML IV PRN ×2 (06:48→17:27)
--- NOTE | 2019-08-08 08:06 | EKG REPORT ---
SEVERITY:- ABNORMAL ECG - ATRIAL-PACED RHYTHM BORDERLINE LEFT AXIS DEVIATION BORDERLINE T ABNORMALITIES, DIFFUSE LEADS : Confirmed by: Lashell Gilbert MD 08-Aug-2019 08:05:38
[2019-08-08 10:22] LABS: PATH REVIEW PATHOLOGIST REVIEWED
[2019-08-08] MEDS: SOTALOL HCL 80 MG TABLET PO SCH ×2 (10:47→21:54)
[2019-08-08] MEDS: LOSARTAN POTASSIUM 50 MG TABLET PO SCH (10:47)
[2019-08-08] MEDS: PANTOPRAZOLE SODIUM 40 MG VIAL IV SCH ×2 (10:47→21:54)
[2019-08-08] MEDS: CYANOCOBALAMIN (VITAMIN B-12) 1,000 MCG TABLET PO SCH (10:49)
[2019-08-08] MEDS: AMLODIPINE BESYLATE 2.5 MG TABLET PO SCH (10:52)
[2019-08-08] MEDS ORDERED: PROMETHAZINE HCL INJ 25 MG/1 ML VIAL IV PRN (14:00)
[2019-08-08] MEDS ORDERED: PROPOFOL INJ 200 MG/20 ML VIAL IV ONE (15:10)
[2019-08-08] MEDS ORDERED: LIDOCAINE 2% INJ (20 MG/ML) 20 ML MDV ONE (15:13)
[2019-08-08] MEDS ORDERED: ONDANSETRON HCL INJ/PF 4 MG/2 ML SDV IV PRN (15:26)
--- NOTE | 2019-08-08 15:43 | Operative Report ---
Operative Report DATE OF SURGERY: 08/08/19 PREOPERATIVE DIAGNOSIS: 1. Gastrointestinal bleed. 2. Blood loss anemia. 3. History of hemorrhoids and diverticulosis POSTOPERATIVE DIAGNOSIS: 1. Granular duodenitis. 2. Mild gastritis. 3. No endoscopic evidence of gastrointestinal bleeding OPERATION: 1. Esophagogastroduodenoscopy. 2. Cold forceps biopsies of gastric and duodenal mucosa SURGEON: YANDY WILKES ANESTHESIA: LMAC TISSUE REMOVED OR ALTERED: Mucosal biopsies COMPLICATIONS: None ESTIMATED BLOOD LOSS: Scant INTRAOPERATIVE FINDINGS: See below PROCEDURE: Patient was taken to the preop holding area to the main operating room LMAC anesthesia was induced. Monitoring devices were attached patient placed in semirecumbent position. Surgical plan surgical timeout were conducted. The flexible upper endoscope was advanced to the oropharynx without difficulty, down the esophagus to the stomach into the duodenum. There was no evidence of bleeding, stricture, tumor or polyp in any of the above organs. The duodenum had a granular surface to it in the proximal 10 cm, so a cold forceps biopsy was obtained of the mucosa. Bleeding was minimal. Specimen was sent as duodenal biopsy. The scope was brought back through the pylorus which was normal. In the stomach there was no evidence of bleeding stricture or ulcer. The pyloric channel was unremarkable. It was not narrowed. There was some streaking of the gastric antrum, photos taken, and a random cold forceps biopsy of the gastric mucosa obtained and sent for Helicobacter pylori presents. Bleeding was minimal. Scope was retroflexed in the stomach to evaluate the GE junction from the stomach side and there was no significant hiatal hernia. Scope was straightened out, and brought back through the GE junction. There was no evidence of stricture. The scope was brought through the esophagus examining mucosa carefully and there was no evidence of tumor bleeding or varices. The scope was withdrawn from the patient's oropharynx. She tolerated procedure well. Plan: 1. Patient had colonoscopy by Dr. Galdino Adler August 2018 with findings of diverticulosis and hemorrhoids only. We suspect patient has had a GI bleed with blood loss due to diverticular bleed. The upper endoscopy showed no evidence of bleeding source 2. No further intervention planned. Support patient medically, and expectantly. 3. Surgery will sign off; I have discussed the patient with the hospitalist service. Please reconsult surgery if clinically indicated.
[2019-08-08 15:54] LABS: FREE T3 1.54 pg/mL (2.77-5.27); FREE T4 (FREE THYROXINE) 0.38 ng/dL (0.78-2.19)
--- NOTE | 2019-08-08 17:21 | PDOC PROGRESS REPORT ---
Subjective Progress Note for:: 08/08/19 Subjective:: The patient returns from her endoscopy. No active bleeding noted. Patient does not remember any of the procedure. She did asked me to repeat the same information multiple times. Interestingly, her TSH was 85 and this could be a significant reason for poor memory and a contributing factor to the anemia. Reason For Visit: GI BLEED, ANEMIA SECONDARY TO BLOOD LOSS Physical Exam Vital Signs: Temp Pulse Resp BP Pulse Ox 97.8 F 79 16 134/77 H 100 08/08/19 16:13 08/08/19 16:13 08/08/19 16:13 08/08/19 16:13 08/08/19 16:13 Intake & Output 08/07/19 08/08/19 08/09/19 06:59 06:59 06:59 Intake Total 2690 610 Balance 2690 610 Weight 62.6 kg 62.2 kg General appearance: PRESENT: no acute distress, cooperative Head exam: PRESENT: atraumatic, normocephalic Eye exam: PRESENT: conjunctiva pale. ABSENT: scleral icterus Ear exam: PRESENT: normal external ear exam. ABSENT: bleeding, drainage Mouth exam: PRESENT: moist, tongue midline Respiratory exam: PRESENT: clear to auscultation dale, symmetrical, unlabored. ABSENT: prolonged expiratory phas, rales, rhonchi, tachypnea, wheezes Cardiovascular exam: PRESENT: RRR, +S1, +S2. ABSENT: diastolic murmur, irre gular rhythm, systolic murmur GI/Abdominal exam: PRESENT: normal bowel sounds, soft. ABSENT: distended, guarding, tenderness Rectal exam: PRESENT: deferred Neurological exam: PRESENT: alert, awake, oriented to person, oriented to place, oriented to situation, other - Poor concentration post procedure could be related to medications Psychiatric exam: ABSENT: agitated, anxious Results Laboratory Results: 08/08/19 05:36 08/08/19 05:36 08/07/19 08/07/19 08/07/19 20:30 20:30 20:30 WBC 5.4 RBC 4.08 Hgb 9.6 L D Hct 28.6 L MCV 70 L D MCH 23.4 L MCHC 33.5 RDW 28.8 H Plt Count 376 Seg Neutrophils % 54.5 Retic Count (auto) 1.53 Sodium Potassium Chloride Carbon Dioxide Anion Gap BUN Creatinine Est GFR ( Amer) Glucose Calcium Magnesium Iron 372.3 H TIBC 540 H % Saturation 69 Transferrin Ferritin 6.75 L Vitamin B12 > 1000.0 H Folate 16.70 TSH Free T4 Free T3 pg/mL 08/07/19 08/08/19 08/08/19 20:30 05:36 05:36 WBC 6.8 RBC 4.34 Hgb 9.6 L Hct 30.0 L MCV 69 L MCH 22.1 L MCHC 32.0 RDW 28.9 H Plt Count 352 Seg Neutrophils % 52.6 Retic Count (auto) 1.56 Sodium 134.8 L Potassium 4.1 Chloride 106 Carbon Dioxide 24 Anion Gap 5 BUN 14 Creatinine 0.64 Est GFR ( Amer) > 60 Glucose 85 Calcium 8.9 Magnesium 2.2 Iron 391.5 H TIBC 496 H % Saturation 79 Transferrin 384.64 H Ferritin 16.20 Vitamin B12 > 1000.0 H Folate 16.50 TSH Free T4 Free T3 pg/mL 08/08/19 08/08/19 08/08/19 05:36 05:36 05:36 WBC RBC Hgb Hct MCV MCH MCHC RDW Plt Count Seg Neutrophils % Retic Count (auto) Sodium Potassium Chloride Carbon Dioxide Anion Gap BUN Creatinine Est GFR ( Amer) Glucose Calcium Magnesium Iron TIBC % Saturation Transferrin 347.25 Ferritin Vitamin B12 Folate TSH 86.20 H Free T4 0.38 L Free T3 pg/mL 1.54 L Impressions: Chest X-Ray 08/07/19 11:41 IMPRESSION: No acute cardiopulmonary process. Assessment and Plan - Diagnosis (1) Acute blood loss anemia Is this a current diagnosis for this admission?: Yes Plan: 08/07/2019 The patient's hemoglobin was only 5.5 on admission. Her MCV is 63. This is not an acute finding. It is likely that her symptoms have been developing slowly over 4 weeks peaks over the last several days. She denies hematemesis or hematochezia. She received 2 units of packed red blood cells we will recheck a CBC. I have also ordered iron/anemia studies due to her low MCV. We will need to hold the aspirin and anticoagulation at this time. In addition we will need to assess her deficiencies and supplement. We will be checking iron, folic acid B12. 08/08/2019 Hemoglobin is stable after 2 units of packed red blood cells. Repeat CBC in the morning. Iron indices are normal as B12 and folic acid. It is possible that profound hypothyroidism could be contributing in addition to gastritis. (2) Gastrointestinal bleed Qualifiers: GI bleed type/associated pathology: unspecified gastrointestinal hemorrhage type Qualified Code(s): K92.2 - Gastrointestinal hemorrhage, unspecified Is this a current diagnosis for this admission?: Yes Plan: 08/07/2019 The patient is on daily NSAIDs. I do not know if she realizes meloxicam is an NSAID. She denied using additional ibuprofen or Naprosyn. I have started on Protonix 40 mg twice daily. Surgery has been consulted for endoscopy. It is likely a gastritis from her nonsteroidal anti-inflammatory use. I have placed her on a clear liquid diet. She will likely undergo bowel prep a nd then n.p.o. status for endoscopy. 08/08/2019 No active upper GI bleed. Diverticuli noted on a colonoscopy last year. She could be having intermittent diverticular bleeding. We will have her follow-up as an outpatient with her primary care provider who may refer her back to Dr. Adler (3) Longstanding persistent atrial fibrillation Is this a current diagnosis for this admission?: Yes Plan: 08/07/2019 Continue sotalol however they need to hold the anticoagulation. 08/08/2019 Excellent rate control. We will hold anticoagulation for a short while (4) Hypertension Qualifiers: Hypertension type: essential hypertension Qualified Code(s): I10 - Essential (primary) hypertension Is this a current diagnosis for this admission?: Yes Plan: 08/07/2019 Continue antihypertensive medications with parameters. Monitor with every 4 hour vital signs 08/08/2019 Continue current medication regimen (5) Hypercholesterolemia Is this a current diagnosis for this admission?: Yes Plan: 08/07/2019 Continue statin therapy (6) Chronic anticoagulation Is this a current diagnosis for this admission?: Yes Plan: 08/07/2019 Holding anticoagulation and aspirin 08/08/2019 Consider resuming anticoagulation in 1 to 2 weeks - Time Time Spent with patient: 15-24 minutes Medications reviewed and adjusted accordingly: Yes Anticipated discharge: Home Within: within 48 hours
[2019-08-08] MEDS: ATORVASTATIN CALCIUM 40 MG TABLET PO SCH (21:54)
[2019-08-09] MEDS: NORMAL SALINE 1000 ML 1,000 ML IV PRN (02:35)
[2019-08-09] MEDS ORDERED: LEVOTHYROXINE SODIUM 0.05 MG TABLET PO SCH (06:00)
[2019-08-09 06:13] LABS: ABSOLUTE BASOPHILS # (AUTO) 0.1 10^3/uL (0.0-0.2); ABSOLUTE EOSINOPHILS # (AUTO) 0.3 10^3/uL (0.0-0.6); ABSOLUTE LYMPHOCYTES (AUTO) 2.1 10^3/uL (0.5-4.7); ABSOLUTE NEUT (AUTO) 4.5 10^3/uL (1.7-8.2); BASOPHILS % (AUTO) 0.9 % (0-2); EOSINOPHILS % (AUTO) 3.6 % (0-6); HEMATOCRIT 28.7 % (36.0-47.0); HEMOGLOBIN 9.1 g/dL (12.0-15.5); LYMPHOCYTES % (AUTO) 26.3 % (13-45); MEAN CORPUSCULAR HEMOGLOBIN 22.2 pg (27.0-33.4); MEAN CORPUSCULAR HGB CONC 31.9 g/dL (32.0-36.0); MEAN CORPUSCULAR VOLUME 70 fl (80-97); MONOCYTES % (AUTO) 12.5 % (3-13); PLATELET COUNT 333 10^3/uL (150-450); RED BLOOD COUNT 4.12 10^6/uL (3.72-5.28); RED CELL DISTRIBUTION WIDTH 29.2 % (11.5-14.0); SEGMENTED NEUTROPHILS % (AUTO) 56.7 % (42-78); TOTAL CELLS COUNTED % (AUTO) 100 %; WHITE BLOOD COUNT 7.9 10^3/uL (4.0-10.5)
[2019-08-09 06:38] LABS: BLOOD UREA NITROGEN 10 mg/dL (7-20); CALCIUM 8.4 mg/dL (8.4-10.2); GLUCOSE 85 mg/dL (75-110); POTASSIUM 3.9 mmol/L (3.6-5.0)
[2019-08-09 06:41] LABS: ANISOCYTOSIS 4+; HYPOCHROMASIA 1+
[2019-08-09 06:43] LABS: ANION GAP 6 (5-19); CARBON DIOXIDE 21 mmol/L (22-30); CHLORIDE 108 mmol/L (98-107); OVALOCYTES SLIGHT; PLATELET COMMENT ADEQUATE; POLYCHROMASIA SLIGHT
[2019-08-09 06:44] LABS: POIKILOCYTOSIS 1+
--- NOTE | 2019-08-09 08:26 | PDOC DISCHARGE SUMMARY ---
Impression - Admit/DC Date/PCP Admission Date/Primary Care Provider: 08/07/19 14:40 NILS STRAUSS MD Discharge Date: 08/09/19 - Discharge Diagnosis (1) Acute blood loss anemia Is this a current diagnosis for this admission?: Yes (2) Gastrointestinal bleed Is this a current diagnosis for this admission?: Yes (3) Longstanding persistent atrial fibrillation Is this a current diagnosis for this admission?: Yes (4) Hypertension Is this a current diagnosis for this admission?: Yes (5) Hypercholesterolemia Is this a current diagnosis for this admission?: Yes (6) Chronic anticoagulation Is this a current diagnosis for this admission?: Yes (7) Hypothyroidism Is this a current diagnosis for this admission?: Yes - Additional Information Resuscitation Status: Full Code Discharge Diet: Cardiac Discharge Activity: Activity As Tolerated Referrals: NILS STRAUSS MD [Primary Care Provider] - Follow up as needed Prescriptions: Levothyroxine Sodium [Synthroid 0.05 mg Tablet] 0.05 mg PO Q6AM 30 Days #30 tablet Home Medications: Aspirin [Adult Low Dose Aspirin EC] 81 mg PO DAILY 09/04/18 Cyanocobalamin (Vitamin B-12) [Vitamin B-12 1000 mcg Tablet] 1,000 mcg PO DAILY 09/04/18 Cyclobenzaprine HCl [Flexeril 5 mg Tablet] 5 mg PO HSP PRN 09/04/18 Losartan Potassium [Cozaar 100 mg Tablet] 100 mg PO DAILY 09/04/18 Omeprazole 20 mg PO Q6AM 09/04/18 Prednisone [Deltasone 5 mg Tablet] 2.5 mg PO DAILY 09/04/18 Sotalol HCl [Sotalol AF] 120 mg PO Q12 09/04/18 Amlodipine Besylate [Norvasc 2.5 mg Tablet] 2.5 mg PO DAILY 08/07/19 Atorvastatin Calcium [Lipitor 40 mg Tablet] 40 mg PO QHS 08/07/19 Lidocaine [Lidoderm 5% (700 mg) Transdermal Patch] 1 patch TOP DAILYP PRN 08/07/19 Loratadine [Claritin 10 mg Tablet] 10 mg PO DAILY 08/07/19 Levothyroxine Sodium [Synthroid 0.05 mg Tablet] 0.05 mg PO Q6AM 30 Days #30 tablet 08/09/19 History of Present Illiness History of Present Illness: STAS FLEMING is a 73 year old female Hospital Course Hospital Course: (1) Acute blood loss anemia Is this a current diagnosis for this admission?: Yes Plan: 08/07/2019 The patient's hemoglobin was only 5.5 on admission. Her MCV is 63. This is not an acute finding. It is likely that her symptoms have been developing slowly over 4 weeks peaks over the last several days. She denies hematemesis or hematochezia. She received 2 units of packed red blood cells we will recheck a CBC. I have also ordered iron/anemia studies due to her low MCV. We will need to hold the aspirin and anticoagulation at this time. In addition we will need to assess her deficiencies and supplement. We will be checking iron, folic acid B12. 08/08/2019 Hemoglobin is stable after 2 units of packed red blood cells. Repeat CBC in the morning. Iron indices are normal as B12 and folic acid. It is possible that profound hypothyroidism could be contributing in addition to gastritis. (2) Gastrointestinal bleed Qualifiers: GI bleed type/associated pathology: unspecified gastrointestinal hemorrhage type Qualified Code(s): K92.2 - Gastrointestinal hemorrhage, unspecified Is this a current diagnosis for this admission?: Yes Plan: 08/07/2019 The patient is on daily NSAIDs. I do not know if she realizes meloxicam is an NSAID. She denied using additional ibuprofen or Naprosyn. I have started on Protonix 40 mg twice daily. Surgery has been consulted for endoscopy. It is likely a gastritis from her nonsteroidal anti-inflammatory use. I have placed her on a clear liquid diet. She will likely undergo bowel prep and then n.p.o. status for endoscopy. 08/08/2019 No active upper GI bleed. Diverticuli noted on a colonoscopy last year. She could be having intermittent diverticular bleeding. We will have her follow-up as an outpatient with her primary care provider who may refer her back to Dr. Adler (3) Longstanding persistent atrial fibrillation Is this a current diagnosis for this admission?: Yes Plan: 08/07/2019 Continue sotalol however they need to hold the anticoagulation. 08/08/2019 Excellent rate control. We will hold anticoagulation for a short while (4) Hypertension Qualifiers: Hypertension type: essential hypertension Qualified Code(s): I10 - Essential (primary) hypertension Is this a current diagnosis for this admission?: Yes Plan: 08/07/2019 Continue antihypertensive medications with parameters. Monitor with every 4 h our vital signs 08/08/2019 Continue current medication regimen (5) Hypercholesterolemia Is this a current diagnosis for this admission?: Yes Plan: 08/07/2019 Continue statin therapy (6) Chronic anticoagulation Is this a current diagnosis for this admission?: Yes Plan: 08/07/2019 Holding anticoagulation and aspirin 08/08/2019 Consider resuming anticoagulation in 1 to 2 weeks (7) Hypothyroidism Qualifiers: Hypothyroidism type: unspecified Qualified Code(s): E03.9 - Hypothyroidism, unspecified Is this a current diagnosis for this admission?: Yes Plan: 08/08/2019 The patient's TSH is 85. This is severely elevated. I will start levothyroxine at 50 mcg daily. The patient should complete her work-up as an outpatient likely with thyroid ultrasound and further testing based on that evaluation. Physical Exam Vital Signs: Temp Pulse Resp BP Pulse Ox 98.8 F 75 17 147/80 H 99 08/09/19 07:53 08/09/19 07:53 08/09/19 07:53 08/09/19 07:53 08/09/19 07:53 Intake & Output 08/08/19 08/09/19 08/10/19 06:59 06:59 06:59 Intake Total 2690 3043 Balance 2690 3043 Weight 62.6 kg 62.5 kg General appearance: PRESENT: no acute distress Respiratory exam: PRESENT: clear to auscultation dale, symmetrical, unlabored. ABSENT: rales, rhonchi, tachypnea, wheezes Cardiovascular exam: PRESENT: RRR, +S1, +S2 GI/Abdominal exam: PRESENT: normal bowel sounds, soft, tenderness. ABSENT: distended, guarding Neurological exam: PRESENT: alert, awake, oriented to person, oriented to place, oriented to situation, other - Oriented but extremely forgetful. Often repeats questions just discussed. Results Laboratory Results: WBC 7.9 10^3/uL (4.0-10.5) 08/09/19 05:54 RBC 4.12 10^6/uL (3.72-5.28) 08/09/19 05:54 Hgb 9.1 g/dL (12.0-15.5) L 08/09/19 05:54 Hct 28.7 % (36.0-47.0) L 08/09/19 05:54 MCV 70 fl (80-97) L 08/09/19 05:54 MCH 22.2 pg (27.0-33.4) L 08/09/19 05:54 MCHC 31.9 g/dL (32.0-36.0) L 08/09/19 05:54 RDW 29.2 % (11.5-14.0) H 08/09/19 05:54 Plt Count 333 10^3/uL (150-450) 08/09/19 05:54 Lymph % (Auto) 26.3 % (13-45) 08/09/19 05:54 [place] % (Auto) 12.5 % (3-13) 08/09/19 05:54 Eos % (Auto) 3.6 % (0-6) 08/09/19 05:54 Baso % (Auto) 0.9 % (0-2) 08/09/19 05:54 Reticulocyte # 0.068 10^6/uL (0.028-0.122) 08/08/19 05:36 Absolute Neuts (auto) 4.5 10^3/uL (1.7-8.2) 08/09/19 05:54 Absolute Lymphs (auto) 2.1 10^3/uL (0.5-4.7) 08/09/19 05:54 Absolute Monos (auto) 1.0 10^3/uL (0.1-1.4) 08/09/19 05:54 Absolute Eos (auto) 0.3 10^3/uL (0.0-0.6) 08/09/19 05:54 Absolute Basos (auto) 0.1 10^3/uL (0.0-0.2) 08/09/19 05:54 Total Counted 100 08/07/19 12:15 Seg Neutrophils % 56.7 % (42-78) 08/09/19 05:54 Seg Neuts % (Manual) 85 % (42-78) H 08/07/19 12:15 Band Neutrophils % 1 % (3-5) L 08/07/19 12:15 Lymphocytes % (Manual) 6 % (13-45) L 08/07/19 12:15 Monocytes % (Manual) 6 % (3-13) 08/07/19 12:15 Eosinophils % (Manual) 2 % (0-6) 08/07/19 12:15 Basophils % (Manual) 0 % (0-2) 08/07/19 12:15 Abs Neuts (Manual) 4.1 10^3/uL (1.7-8.2) 08/07/19 12:15 Abs Lymphs (Manual) 0.3 10^3/uL (0.5-4.7) L 08/07/19 12:15 Abs Monocytes (Manual) 0.3 10^3/uL (0.1-1.4) 08/07/19 12:15 Absolute Eos (Manual) 0.1 10^3/uL (0.0-0.6) 08/07/19 12:15 Abs Basophils (Manual) 0.0 10^3/uL (0.0-0.2) 08/07/19 12:15 Platelet Comment ADEQUATE 08/09/19 05:54 Polychromasia SLIGHT 08/09/19 05:54 Hypochromasia 1+ 08/09/19 05:54 Poikilocytosis 1+ 08/09/19 05:54 Anisocytosis 4+ 08/09/19 05:54 Microcytosis 2+ 08/09/19 05:54 Target Cells SLIGHT 08/07/19 12:15 Ovalocytes SLIGHT 08/09/19 05:54 Retic Count (auto) 1.56 % (0.66-2.85) 08/08/19 05:36 Sodium 134.6 mmol/L (137-145) L 08/09/19 05:54 Potassium 3.9 mmol/L (3.6-5.0) 08/09/19 05:54 Chloride 108 mmol/L (98-107) H 08/09/19 05:54 Carbon Dioxide 21 mmol/L (22-30) L 08/09/19 05:54 Anion Gap 6 (5-19) 08/09/19 05:54 BUN 10 mg/dL (7-20) 08/09/19 05:54 Creatinine 0.58 mg/dL (0.52-1.25) 08/09/19 05:54 Est GFR ( Amer) > 60 (>60) 08/09/19 05:54 Est GFR (MDRD) Non-Af > 60 (>60) 08/09/19 05:54 Glucose 85 mg/dL (75-110) 08/09/19 05:54 Calcium 8.4 mg/dL (8.4-10.2) 08/09/19 05:54 Magnesium 2.0 mg/dL (1.6-2.3) 08/09/19 05:54 Iron 391.5 ug/dL (37-170) H 08/08/19 05:36 TIBC 496 ug/dL (250-450) H 08/08/19 05:36 % Saturation 79 % 08/08/19 05:36 Transferrin 347.25 mg/dL (206.00-381.00) 08/08/19 05:36 Ferritin 16.20 ng/mL (11.1-264.0) 08/08/19 05:36 Total Bilirubin 0.5 mg/dL (0.2-1.3) 08/07/19 12:15 Direct Bilirubin 0.2 mg/dL (0.0-0.4) 08/07/19 12:15 Neonat Total Bilirubin Not Reportable 08/07/19 12:15 Neonat Direct Bilirubin Not Reportable 08/07/19 12:15 Neonat Indirect Bili Not Reportable 08/07/19 12:15 AST 37 U/L (14-36) H 08/07/19 12:15 ALT 24 U/L (<35) 08/07/19 12:15 Alkaline Phosphatase 78 U/L (38-126) 08/07/19 12:15 Total Protein 6.8 g/dL (6.3-8.2) 08/07/19 12:15 Albumin 3.8 g/dL (3.5-5.0) 08/07/19 12:15 Vitamin B12 > 1000.0 pg/mL (239-931) H 08/08/19 05:36 Folate 16.50 ng/mL (>2.76) 08/08/19 05:36 TSH 86.20 uIU/mL (0.47-4.68) H 08/08/19 05:36 Free T4 0.38 ng/dL (0.78-2.19) L 08/08/19 05:36 Free T3 pg/mL 1.54 pg/mL (2.77-5.27) L 08/08/19 05:36 Urine Color YELLOW 08/07/19 16:15 Urine Appearance CLEAR 08/07/19 16:15 Urine pH 6.0 (5.0-9.0) 08/07/19 16:15 Ur Specific [place] 1.009 08/07/19 16:15 Urine Protein NEGATIVE mg/dL (NEGATIVE) 08/07/19 16:15 Urine Glucose (UA) NEGATIVE mg/dL (NEGATIVE) 08/07/19 16:15 Urine Ketones NEGATIVE mg/dL (NEGATIVE) 08/07/19 16:15 Urine Blood NEGATIVE (NEGATIVE) 08/07/19 16:15 Urine Nitrite NEGATIVE (NEGATIVE) 08/07/19 16:15 Urine Bilirubin NEGATIVE (NEGATIVE) 08/07/19 16:15 Urine Urobilinogen NEGATIVE mg/dL (<2.0) 08/07/19 16:15 Ur Leukocyte Esterase SMALL (NEGATIVE) H 08/07/19 16:15 Urine WBC (Auto) 2 /HPF 08/07/19 16:15 Urine Bacteria (Auto) TRACE /HPF 08/07/19 16:15 Urine Mucus (Auto) RARE /LPF 08/07/19 16:15 Urine Ascorbic Acid NEGATIVE (NEGATIVE) 08/07/19 16:15 POC Stool Occult Blood POSITIVE (NEGATIVE) 08/07/19 12:41 SARS-CoV-2 (PCR) NEGATIVE (NEGATIVE) 08/08/19 13:00 Slides for Path Review PATHOLOGIST REVIEWED 08/07/19 12:15 Blood Type A POSITIVE 08/07/19 12:15 Antibody Screen NEGATIVE 08/07/19 12:15 Crossmatch See Detail 08/07/19 12:15 Impressions: Chest X-Ray 08/07/19 11:41 IMPRESSION: No acute cardiopulmonary process. Plan Health Concerns: Extremely poor memory. In light of profound hypothyroidism this may improve. No obvious source of blood loss identified. Reticulocyte count is not elevated which is surprising given the level of anemia. Hopefully with correction of the thyroid her focus and concentration as well as memory and anemia may improve Plan of Treatment: Resume medications except anticoagulation and meloxicam Start levothyroxine 50 mcg daily Follow-up with Dr. Strauss to address additional thyroid studies. Nuclear medicine thyroid uptake scan from 2 years ago was normal. Follow-up with Dr. Lindsey. Hold anticoagulants until you see Dr. Lindsey. Goals: Correction of profound hypothyroidism Correction of anemia Minimize risk factors for GI bleeding Possibly identified the specific source of blood loss Time Spent: Greater than 30 Minutes Stroke Is this a Stroke Patient?: No Acute Heart Failure - Is this a Heart Failure Patient?: No
[2019-08-09] MEDS: AMLODIPINE BESYLATE 2.5 MG TABLET PO SCH (09:54)
[2019-08-09] MEDS: LOSARTAN POTASSIUM 50 MG TABLET PO SCH (09:54)
[2019-08-09] MEDS: SOTALOL HCL 80 MG TABLET PO SCH (09:54)
[2019-08-09] MEDS: PANTOPRAZOLE SODIUM 40 MG VIAL IV SCH (09:54)
[2019-08-09] MEDS: CYANOCOBALAMIN (VITAMIN B-12) 1,000 MCG TABLET PO SCH (09:54)
[2019-08-09 13:41] VITALS: BP 146/84
== END 2019-08-09 14:30 | disposition home health service (06) | DRG 378 ==
LOC: ER 11:27 → EH 14:40 → 4S 18:04
PROVIDERS: ADMIT Hospitalist; ATTEND Hospitalist
PROC: 0DB78ZX Excision of Stomach, Pylorus, Via Natural or Artificial Opening Endoscopic, Diagnostic (ICD-10-PCS; 2019-08-08)
PROC: 0DB98ZX Excision of Duodenum, Via Natural or Artificial Opening Endoscopic, Diagnostic (ICD-10-PCS; principal; 2019-08-08 16:00)
DX: K29.81 Duodenitis with bleeding (principal); D62 Acute posthemorrhagic anemia; I48.11 Longstanding persistent atrial fibrillation; K29.71 Gastritis, unspecified, with bleeding; I10 Essential (primary) hypertension; E78.00 Pure hypercholesterolemia, unspecified; E03.9 Hypothyroidism, unspecified; Z79.01 Long term (current) use of anticoagulants; Z79.82 Long term (current) use of aspirin; Z79.52 Long term (current) use of systemic steroids; Z79.899 Other long term (current) drug therapy; Z79.84 Long term (current) use of oral hypoglycemic drugs; Z79.890 Hormone replacement therapy; Z95.0 Presence of cardiac pacemaker
CPT/HCPCS: 36415; 36430; 43239; 71045; 731; 80048; 80053; 81001; 82270; 82607; 82728; 82746; 83540; 83550; 83735; 84439; 84443; 84466; 84481; 85025; 85045; 86850; 86900; 86901; 86920; 87635; 88305; 88342; 93005; 93010; 99140; 99291; C9113; C9803; J2704; J3490; J7030; P9016